=== PATIENT | male | born 1950 | race Caucasian/White ===

== ENCOUNTER 2016-09-06 15:23 | Emergency (ER) | payer OTHER ==
[2008-10-28 06:45] VITALS: BP 117/60
[~2016-09-06] VITALS: Ht 185.4 cm; Wt 116.4 kg
[~2016-09-06 15:23] MED LIST: ACTOS30 MG PO; AMITRIPTYLINE H25 M1 PO; AMITRIPTYLINE25 MG PO; AMOXICILLIN 8751 TAB PO; ANTIBIOTIC PO; ASPIRIN 32325 MG/TAB PO; ASPIRIN E.C. 8181 MG PO; CEPHALEXIN500 M1 PO; CIPRO 250MG TA250 MG PO; CIPRO 500MG TA500 MG PO; COLACE100 MG/10 PO; CYANOCOBAL1000 MCG/M IM; DESYREL 50MG50 MG PO; DETEMIR SQ; DIABETA 5MG5 MG/TAB PO; DICLOXACILLIN500 MG PO; EFFIENT10 MG PO; FERREX 150 FORT1 CA1 PO; FLOMAX 0.40.4 MG/CAP PO; FOLIC ACID 11 MG/TA1 PO; FOLIC ACID0.4 MG PO; FORTAMET500 MG PO; GLUCOPHAGE1000 MG PO; GLUCOSAMINE 1000 PO; GLUCOSAMINE500 M2 PO; IBU400 MG PO; IBUPROFEN IB200 MG PO; INSULIN 70/3100 U/ML SQ; KLOR-CON20 MEQ PO; LASIX40 MG PO; LEADER GARLIC400 MG PO; LEVAQUIN 250MG250 MG PO; LEVEMIR SQ; LEVEMIR100 U/ML; LEVEMIR100 U/ML SC; LEVEMIR100 U/ML SQ; LISINOPRIL2.5 MG PO; LOPRESSOR 225 MG/TAB PO; LOPRESSOR 550 MG/TAB PO; LORTAB 5/500 501 TAB PO; LYRICA 50MG CAP50 MG PO; LYRICA 75MG CAP75 MG PO; MASON NATURAL500 MG PO; METFORMIN HCL500 MG PO; METOCLOPRAMIDE10 MG PO; METOPROLOL PO; METOPROLOL50 MG PO; MOTRIN800 MG PO; NITROSTAT0.4 MG/TAB SL; NORCO 325 MG-51 TAB PO; NORCO 325 MG-7.1 TAB PO; NOVOLOG 100U100 U/ML SQ; NOVOLOG FLEX100 U/ML SQ; ONGLYZA5 MG PO; PANTOPRAZOLE40 MG PO; PERCOCET 325 MG1 TA2 PO; PLAVIX 75MG TAB75 MG PO; PROSCAR5 MG PO; RANITIDINE HYD150 MG PO; RANITIDINE150 MG PO; REGLAN 10MG10 MG/TAB PO; REGLAN 5MG T5 MG/TAB PO; RYBIX ODT50 MG PO; SENNA8.6 MG PO; SEPTRA DS 8001 TAB PO; SIMVASTATIN20 MG PO; ULTRAM ER100 MG PO; VENTOLIN0.09 MG IH; VICODIN 5/5001 UDTAB PO; VITAMIN B COMPL1 SGL PO; WELLBUTRIN SR150 M1 PO; ZANTAC 150MG T150 MG PO; ZANTAC 7575 MG PO; ZOCOR 10MG10 MG PO; ZOCOR 20MG20 MG PO; ZOCOR40 MG PO
[2016-09-06 15:25] VITALS: TEMP 98.7
[2016-09-06 16:25] LABS: BASO % 0.3 % (0.0-2.0); EOS # 0.2 (0.0-0.7); EOS % 2.6 % (0-4.0); GRAN # 6.6 (1.4-6.5); GRAN % 72.5 % (42.2-75.2); HEMOGLOBIN 12.1 g/dl (13.5-18.0); LYMPH # 1.3 (1.2-3.4); LYMPH % 14.6 % (20.0-51.0); MEAN CELL VOLUME 91 fl (80.0-100.0); MEAN CORPUSCULAR HEMOGLOBIN 30 pg (27.0-31.0); MEAN CORPUSCULAR HGB CONC 33 g/dl (33.0-37.0); MEAN PLATELET VOLUME 9.6 fl (7.4-10.4); MONO # 0.9 (0.1-0.6); MONO % 9.4 % (1.7-9.3); PLATELET COUNT 283 K/mm3 (130-400); RED BLOOD COUNT 4.02 M/mm3 (4.20-5.60); REDCELL DISTRIBUTION WIDTH-CV 14.2 % (11.5-14.5); WHITE BLOOD COUNT 9.1 K/mm3 (4.8-10.8)
[2016-09-06 16:31] LABS: HEMATOCRIT 36.6 % (42.0-52.0)
[2016-09-06 16:43] LABS: ADJUSTED CALCIUM 9.6 mg/dL (8.4-10.2); ALBUMIN 4.1 gm/dL (3.5-5.0); BILIRUBIN,TOTAL 0.7 mg/dL (0.0-1.0); C-REACTIVE PROTEIN 1.4 mg/dL (0.0-0.9); CALCIUM 9.7 mg/dL (8.4-10.2); CREATININE, serum 1.58 mg/dL (0.66-1.25); POTASSIUM 4.8 mmol/L (3.4-5.0); TOTAL PROTEIN 7.4 gm/dL (6.4-8.2)
[2016-09-06] MEDS ORDERED: AMOXICILLIN 8751 TAB PO (17:54)
[2016-09-06 18:07] VITALS: BP 128/85; PULSE 63
== END 2016-09-06 18:10 | disposition home or self-care (01) ==
LOC: COL.ER 15:23
PROVIDERS: Family Medicine
DX: L03.032 Cellulitis of left toe (principal); E11.9 Type 2 diabetes mellitus without complications

== ENCOUNTER 2017-10-10 09:25 | Inpatient (IN) | payer MEDICARE ==
[~2017-10-10] VITALS: Ht 185.4 cm; Wt 123.4 kg
[2017-10-10 12:19] VITALS: BP 148/62; PULSE 48; TEMP 97.8
[2017-10-10] MEDS ORDERED: REQUIP0.25 MG PO (12:53)
[2017-10-10 12:56] LABS: BASO % 0.2 % (0.0-2.0); EOS # 0.3 (0.0-0.7); EOS % 3.7 % (0-4.0); GRAN % 70.8 % (42.2-75.2); LYMPH # 1.4 (1.2-3.4); LYMPH % 16.8 % (20.0-51.0); MEAN CELL VOLUME 92 fl (80.0-100.0); MEAN CORPUSCULAR HGB CONC 34 g/dl (33.0-37.0); MEAN PLATELET VOLUME 9.9 fl (7.4-10.4); MONO # 0.7 (0.1-0.6); MONO % 7.7 % (1.7-9.3); PLATELET COUNT 264 K/mm3 (130-400); RED BLOOD COUNT 3.28 M/mm3 (4.20-5.60); REDCELL DISTRIBUTION WIDTH-CV 13.9 % (11.5-14.5)
[2017-10-10] MEDS ORDERED: SINGULAIR 110 MG/TAB PO (12:56)
[2017-10-10 12:57] LABS: HEMATOCRIT 30.3 % (42.0-52.0); HEMOGLOBIN 10.2 g/dl (13.5-18.0); MEAN CORPUSCULAR HEMOGLOBIN 31 pg (27.0-31.0)
[2017-10-10 13:08] LABS: ALBUMIN 3.8 gm/dL (3.5-5.0); BILIRUBIN,TOTAL 0.3 mg/dL (0.0-1.0); CALCIUM 9.6 mg/dL (8.4-10.2); POTASSIUM 5.2 mmol/L (3.4-5.0); TOTAL PROTEIN 7.1 gm/dL (6.4-8.2)
[2017-10-10 13:11] LABS: CREATININE, serum 4.12 mg/dL (0.66-1.25)
[2017-10-10] MEDS ORDERED: FLOMAX 0.40.4 MG/CAP PO (16:18)
[2017-10-10 16:31] VITALS: BP 136/62; PULSE 47; TEMP 98.4
[2017-10-10 17:34] LABS: COLLECTION METHOD CLEAN CATCH
[2017-10-10 17:44] LABS: PH 6 (5-8); SQUAMOUS EPITHELIAL None Seen /hpf; URINE APPEARANCE Clear; URINE BACTERIA None Seen /hpf; URINE BILIRUBIN Negative (NEGATIVE); URINE BLOOD 3+ (NEGATIVE); URINE COLOR Red; URINE GLUCOSE Negative (NEGATIVE); URINE KETONE Negative (NEGATIVE); URINE LEUKOCYTE ESTERASE Negative (NEGATIVE); URINE NITRATE Negative (NEGATIVE); URINE PROTEIN(semi-quant) 2+ (NEGATIVE); URINE RBC >50 /hpf; URINE UROBILINOGEN Negative (NEGATIVE)
[2017-10-10 19:18] LABS: CALCIUM 9.4 mg/dL (8.4-10.2); POTASSIUM 4.9 mmol/L (3.4-5.0)
[2017-10-10 19:22] VITALS: BP 159/59; PULSE 51; TEMP 98
[2017-10-10 19:22] LABS: CREATININE, serum 3.95 mg/dL (0.66-1.25)
[2017-10-10 23:32] VITALS: BP 137/60; PULSE 55; TEMP 97.8
[2017-10-11 03:36] VITALS: BP 137/53; PULSE 56; TEMP 98.1
[2017-10-11 07:00] LABS: BASO % 0.2 % (0.0-2.0); EOS # 0.2 (0.0-0.7); EOS % 2.6 % (0-4.0); GRAN % 75.6 % (42.2-75.2); LYMPH # 1.2 (1.2-3.4); LYMPH % 12.5 % (20.0-51.0); MEAN CELL VOLUME 94 fl (80.0-100.0); MEAN CORPUSCULAR HGB CONC 33 g/dl (33.0-37.0); MEAN PLATELET VOLUME 10.9 fl (7.4-10.4); MONO # 0.8 (0.1-0.6); MONO % 8.4 % (1.7-9.3); PLATELET COUNT 302 K/mm3 (130-400); RED BLOOD COUNT 3.36 M/mm3 (4.20-5.60); REDCELL DISTRIBUTION WIDTH-CV 13.8 % (11.5-14.5)
[2017-10-11 07:01] LABS: CALCIUM 9.2 mg/dL (8.4-10.2); POTASSIUM 4.8 mmol/L (3.4-5.0)
[2017-10-11 07:09] LABS: CREATININE, serum 3.97 mg/dL (0.66-1.25)
[2017-10-11 07:14] LABS: HEMATOCRIT 31.5 % (42.0-52.0); HEMOGLOBIN 10.4 g/dl (13.5-18.0); MEAN CORPUSCULAR HEMOGLOBIN 31 pg (27.0-31.0)
[2017-10-11 07:40] VITALS: BP 145/58; PULSE 56; TEMP 98.4
[2017-10-11 11:54] VITALS: BP 126/54; PULSE 65; TEMP 98.5
[2017-10-11 16:26] VITALS: BP 112/44; PULSE 52; TEMP 98.2
[2017-10-11 18:15] LABS: CALCIUM 9.1 mg/dL (8.4-10.2); CREATININE, serum 3.67 mg/dL (0.66-1.25); POTASSIUM 4.7 mmol/L (3.4-5.0)
[2017-10-11 20:04] VITALS: BP 123/50; PULSE 54; TEMP 98.6
[2017-10-11 23:35] VITALS: BP 121/48; PULSE 56; TEMP 97.6
[2017-10-12 04:10] VITALS: BP 137/51; PULSE 63; TEMP 98.1
[2017-10-12 07:14] LABS: BASO % 0.2 % (0.0-2.0); EOS # 0.3 (0.0-0.7); EOS % 2.4 % (0-4.0); GRAN # 8.8 (1.4-6.5); LYMPH # 1.1 (1.2-3.4); LYMPH % 10.3 % (20.0-51.0); MEAN CELL VOLUME 94 fl (80.0-100.0); MEAN CORPUSCULAR HGB CONC 33 g/dl (33.0-37.0); MEAN PLATELET VOLUME 10.5 fl (7.4-10.4); MONO # 0.8 (0.1-0.6); MONO % 7.3 % (1.7-9.3); PLATELET COUNT 304 K/mm3 (130-400); REDCELL DISTRIBUTION WIDTH-CV 13.8 % (11.5-14.5)
[2017-10-12 07:20] LABS: HEMATOCRIT 33.9 % (42.0-52.0); HEMOGLOBIN 11.1 g/dl (13.5-18.0); MEAN CORPUSCULAR HEMOGLOBIN 31 pg (27.0-31.0)
[2017-10-12 07:23] LABS: CALCIUM 9.3 mg/dL (8.4-10.2); CREATININE, serum 3.62 mg/dL (0.66-1.25); POTASSIUM 4.5 mmol/L (3.4-5.0)
[2017-10-12 08:03] VITALS: BP 117/46; PULSE 65; TEMP 98.4
[2017-10-12 11:54] VITALS: BP 130/66; PULSE 58; TEMP 98
== END 2017-10-12 14:32 | disposition home or self-care (01) | DRG 684 ==
LOC: COL.RAD 09:25 → MEDICAL 11:48
PROVIDERS: Internal Medicine; Physician Assistant; Urology
PROC: 0TJB8ZZ Inspection of Bladder, Via Natural or Artificial Opening Endoscopic (ICD-10-PCS; principal; 2017-10-11 12:45)
DX: N17.9 Acute kidney failure, unspecified (principal); N40.1 Benign prostatic hyperplasia with lower urinary tract symptoms; R33.8 Other retention of urine; I87.2 Venous insufficiency (chronic) (peripheral); G25.81 Restless legs syndrome; E11.40 Type 2 diabetes mellitus with diabetic neuropathy, unspecified; E87.5 Hyperkalemia; D64.9 Anemia, unspecified; I12.9 Hypertensive chronic kidney disease with stage 1 through stage 4 chronic kidney disease, or unspecified chronic kidney disease; N18.3 Chronic kidney disease, stage 3 (moderate); E11.22 Type 2 diabetes mellitus with diabetic chronic kidney disease; N13.39 Other hydronephrosis; Z95.1 Presence of aortocoronary bypass graft; Z79.4 Long term (current) use of insulin
CPT/HCPCS: 99223-AI; 99232-AI; 99239; G0378; J1644; J1815

== ENCOUNTER 2017-10-12 21:09 | Emergency (ER) | payer MEDICARE ==
[2008-10-28 06:45] VITALS: BP 117/60
[~2017-10-12] VITALS: Ht 185.4 cm; Wt 109.5 kg
[~2017-10-12 21:09] MED LIST changes: +REQUIP0.25 MG PO; +SINGULAIR 110 MG/TAB PO
[2017-10-12 21:13] VITALS: BP 142/64; TEMP 98.3
[2017-10-12 22:16] VITALS: PULSE 73
== END 2017-10-12 22:17 | disposition home or self-care (01) ==
LOC: COL.ER 21:09
DX: R31.9 Hematuria, unspecified (principal); R33.9 Retention of urine, unspecified; N40.0 Benign prostatic hyperplasia without lower urinary tract symptoms; N18.9 Chronic kidney disease, unspecified; E11.22 Type 2 diabetes mellitus with diabetic chronic kidney disease; Z79.4 Long term (current) use of insulin

== ENCOUNTER 2017-10-18 11:50 | Observation (INO) | payer MEDICARE ==
[2008-10-28 06:45] VITALS: BP 117/60
[~2017-10-18] VITALS: Ht 185.4 cm; Wt 109.0 kg
[2017-10-18] VITALS (10 sets, daily range): BP systolic 115–139; BP diastolic 48–58; PULSE 48–65; TEMP 97.4–98.3
[~2017-10-18 11:50] MED LIST changes: -METOPROLOL PO; +TOPROL XL 25MG25 MG PO
[2017-10-19 02:00] VITALS: BP 109/59; PULSE 78; TEMP 97.8
[2017-10-19 04:57] VITALS: BP 124/55; PULSE 77; TEMP 98.6
[2017-10-19 09:32] VITALS: BP 114/46; PULSE 75; TEMP 98
[2017-10-19 13:12] VITALS: BP 107/45; PULSE 61; TEMP 97.8
[2017-10-19 17:42] VITALS: BP 126/55; PULSE 58; TEMP 98.8
[2017-10-19 22:02] VITALS: BP 123/47; PULSE 69; TEMP 98.1
[2017-10-20 01:44] VITALS: BP 130/58; PULSE 60; TEMP 98.4
[2017-10-20 05:29] VITALS: BP 110/55; PULSE 62; TEMP 98.4
[2017-10-20 09:40] VITALS: BP 111/56; PULSE 57; TEMP 98.6
[2017-10-20 13:59] VITALS: BP 132/43; PULSE 64; TEMP 98.3
== END 2017-10-20 15:09 | disposition home or self-care (01) ==
LOC: SDCO 11:50 → SURG 14:27 → SDCO 14:30 → SURG 17:00
DX: N40.1 Benign prostatic hyperplasia with lower urinary tract symptoms (principal); R33.8 Other retention of urine; N13.30 Unspecified hydronephrosis; I25.10 Atherosclerotic heart disease of native coronary artery without angina pectoris; K21.9 Gastro-esophageal reflux disease without esophagitis; E78.5 Hyperlipidemia, unspecified; F32.9 Major depressive disorder, single episode, unspecified; E11.40 Type 2 diabetes mellitus with diabetic neuropathy, unspecified; E11.22 Type 2 diabetes mellitus with diabetic chronic kidney disease; N18.9 Chronic kidney disease, unspecified; E66.9 Obesity, unspecified; G47.00 Insomnia, unspecified; D64.9 Anemia, unspecified; E53.8 Deficiency of other specified B group vitamins; Z95.1 Presence of aortocoronary bypass graft; Z79.4 Long term (current) use of insulin; Z79.82 Long term (current) use of aspirin; Z87.891 Personal history of nicotine dependence
CPT/HCPCS: G0378; J0690; J1100; J1815; J2250; J2405; J2704; J3010; J7030

== ENCOUNTER 2017-11-16 23:42 | Emergency (ER) | payer MEDICARE ==
[2008-10-28 06:45] VITALS: BP 117/60
[~2017-11-16] VITALS: Ht 185.4 cm; Wt 111.8 kg
[2017-11-16 23:53] VITALS: TEMP 99
[2017-11-17 00:18] LABS: COLLECTION METHOD CLEAN CATCH
[2017-11-17 00:32] LABS: PH 6 (5-8); SQUAMOUS EPITHELIAL None Seen /hpf; URINE APPEARANCE Cloudy; URINE BACTERIA None Seen /hpf; URINE BILIRUBIN Negative (NEGATIVE); URINE BLOOD 2+ (NEGATIVE); URINE COLOR Red; URINE GLUCOSE 1+ (NEGATIVE); URINE KETONE Negative (NEGATIVE); URINE LEUKOCYTE ESTERASE 1+ (NEGATIVE); URINE NITRATE Negative (NEGATIVE); URINE PROTEIN(semi-quant) 2+ (NEGATIVE); URINE RBC >50 /hpf; URINE UROBILINOGEN Negative (NEGATIVE)
[2017-11-17 00:39] LABS: BASO % 0.4 % (0.0-2.0); EOS # 0.5 (0.0-0.7); GRAN # 6.3 (1.4-6.5); GRAN % 66.5 % (42.2-75.2); LYMPH # 1.7 (1.2-3.4); LYMPH % 18.2 % (20.0-51.0); MEAN CELL VOLUME 92 fl (80.0-100.0); MEAN CORPUSCULAR HEMOGLOBIN 31 pg (27.0-31.0); MEAN CORPUSCULAR HGB CONC 33 g/dl (33.0-37.0); MEAN PLATELET VOLUME 9.9 fl (7.4-10.4); MONO # 0.8 (0.1-0.6); MONO % 8.3 % (1.7-9.3); PLATELET COUNT 367 K/mm3 (130-400); RED BLOOD COUNT 3.26 M/mm3 (4.20-5.60); REDCELL DISTRIBUTION WIDTH-CV 14.1 % (11.5-14.5)
[2017-11-17 00:44] LABS: ALBUMIN 3.7 gm/dL (3.5-5.0); BILIRUBIN,TOTAL 0.4 mg/dL (0.0-1.0); CALCIUM 9.4 mg/dL (8.4-10.2); CREATININE, serum 2.06 mg/dL (0.66-1.25); POTASSIUM 4.6 mmol/L (3.4-5.0); TOTAL PROTEIN 7.2 gm/dL (6.4-8.2)
[2017-11-17] MEDS ORDERED: CIPRO 500MG TA500 MG PO (01:24)
[2017-11-17 01:46] VITALS: BP 115/54; PULSE 56
== END 2017-11-17 01:46 | disposition home or self-care (01) ==
LOC: COL.ER 23:42
PROVIDERS: Nurse Practitioner
DX: N39.0 Urinary tract infection, site not specified (principal); E11.9 Type 2 diabetes mellitus without complications; Z79.4 Long term (current) use of insulin; Z90.89 Acquired absence of other organs; Z79.82 Long term (current) use of aspirin; Z87.891 Personal history of nicotine dependence; Z95.1 Presence of aortocoronary bypass graft

== ENCOUNTER → 2018-02-23 | Outpatient (CLI) | payer MEDICARE ==
[2018-02-23 12:03] LABS: CALCIUM 8.5 mg/dL (8.4-10.2); CREATININE, serum 1.38 mg/dL (0.66-1.25); POTASSIUM 4.4 mmol/L (3.4-5.0)
[2018-02-24 00:24] LABS: URINE MICROALBUMIN 3.6 mg/dL (0.0-1.7)
== END ==
LOC: COL.LAB 10:26
PROVIDERS: Internal Medicine
DX: I12.9 Hypertensive chronic kidney disease with stage 1 through stage 4 chronic kidney disease, or unspecified chronic kidney disease (principal); N18.3 Chronic kidney disease, stage 3 (moderate); E66.8 Other obesity

== ENCOUNTER 2019-10-30 13:57 | Inpatient (IN) | payer MEDICARE ==
[~2019-10-30] VITALS: Ht 185.4 cm; Wt 106.8 kg
[2019-10-30 15:00] LABS: BASO % 0.2 % (0.0-2.0); EOS # 0.2 (0.0-0.7); GRAN # 12.9 (1.4-6.5); GRAN % 84.2 % (42.2-75.2); HEMOGLOBIN 11.5 g/dl (13.5-18.0); LYMPH # 0.9 (1.2-3.4); LYMPH % 5.9 % (20.0-51.0); MEAN CELL VOLUME 104 fl (80.0-100.0); MEAN CORPUSCULAR HEMOGLOBIN 34 pg (27.0-31.0); MEAN CORPUSCULAR HGB CONC 32 g/dl (33.0-37.0); MEAN PLATELET VOLUME 10.3 fl (7.4-10.4); MONO # 1.2 (0.1-0.6); MONO % 8.1 % (1.7-9.3); PLATELET COUNT 465 K/mm3 (130-400); REDCELL DISTRIBUTION WIDTH-CV 17.2 % (11.5-14.5)
[2019-10-30 15:03] LABS: HEMATOCRIT 35.5 % (42.0-52.0)
[2019-10-30] MEDS ORDERED: LEVEMIR100 U/ML SQ (15:08)
[2019-10-30] MEDS ORDERED: REQUIP0.25 MG PO (15:10)
[2019-10-30 15:11] LABS: ALBUMIN 4.1 gm/dL (3.5-5.0); BILIRUBIN,TOTAL 0.5 mg/dL (0.0-1.0); C-REACTIVE PROTEIN 3.8 mg/dL (0.0-0.9); CALCIUM 9.2 mg/dL (8.4-10.2); CREATININE, serum 1.69 (0.66-1.25); POTASSIUM 5.2 mmol/L (3.4-5.0); TOTAL PROTEIN 7.1 gm/dL (6.4-8.2)
[2019-10-30 15:24] LABS: ERYTHROCYTE SEDIMENTATION RATE 19 mm/hr (0-30)
[2019-10-30 15:49] LABS: PROTHROMBIN TIME 11.5 SECONDS (9.7-12.8)
[2019-10-30 15:52] LABS: PARTIAL THROMBOPLASTIN TIME 31.4 SECONDS (26.0-37.0)
[2019-10-30] MEDS ORDERED: PEPCID AC 10MG10 MG PO (15:54)
[2019-10-30] MEDS ORDERED: ZYRTEC 10MG10 MG PO (15:55)
[2019-10-30] MEDS ORDERED: TOPROL XL 25MG25 MG PO (15:56)
[2019-10-30] MEDS ORDERED: ASPIRIN 32325 MG/TA1 PO (15:57)
[2019-10-30] MEDS ORDERED: HYDROXYURE500 MG/CAP PO (15:58)
[2019-10-30] MEDS ORDERED: NATURAL MAGNES200 MG PO (15:59)
--- NOTE | 2019-10-30 18:40 | NUR ---
Pt up to room 349, sitting in recliner at bedside. Pt is A&O, independent in room, on room air, breathing even and unlabored. Med rec, allergies and pharmacy completed. Pt has ulcer to ball of rt foot. Ortho consulted and saw patient, rt foot ulcer, not draining at this time, covered w/ nonadhesive and wrapped. Report given to DEBO Bella.
[2019-10-30 18:55] VITALS: BP 126/47; PULSE 56; TEMP 98.1
[2019-10-30 20:13] VITALS: BP 126/47; PULSE 56; TEMP 98.6
[2019-10-31 00:24] VITALS: BP 124/54; PULSE 57; TEMP 98.2
[2019-10-31 04:12] VITALS: BP 132/48; PULSE 60; TEMP 99.4
--- NOTE | 2019-10-31 05:37 | NUR ---
PATIENT HAS HAD A RESTFUL NIGHT SLEEP. PATIENT SLEEPS IN THE RECLINER OR AT LEAST THAT IS WHERE HE WANTED TO SLEEP THIS EVENING. PATIENT HAS NOT REPORTED ANY ISSUES TO THIS NURSE. HIS FOOT REMAINS RAPPED IN [facility]. PATIENT WAS ABLE TO TELL ME ALL THE INFORMATION NEEDED FOR HIS 5 PAGE ASSESSMENT. PATIENT TOOK EVENING MEDICATIONS WITHOUT ISSUES. WILL REPORT OFF TO DAY SHIFT UPON THEIR ARRIVAL
[2019-10-31 06:12] LABS: BASO % 0.2 % (0.0-2.0); EOS # 0.2 (0.0-0.7); EOS % 1.4 % (0-4.0); GRAN # 9.2 (1.4-6.5); HEMOGLOBIN 10.8 g/dl (13.5-18.0); LYMPH # 0.7 (1.2-3.4); MEAN CELL VOLUME 104 fl (80.0-100.0); MEAN CORPUSCULAR HEMOGLOBIN 34 pg (27.0-31.0); MEAN CORPUSCULAR HGB CONC 32 g/dl (33.0-37.0); MEAN PLATELET VOLUME 9.8 fl (7.4-10.4); PLATELET COUNT 400 K/mm3 (130-400); RED BLOOD COUNT 3.21 M/mm3 (4.20-5.60); REDCELL DISTRIBUTION WIDTH-CV 17.2 % (11.5-14.5)
[2019-10-31 06:16] LABS: HEMATOCRIT 33.5 % (42.0-52.0)
[2019-10-31 06:20] LABS: ALBUMIN 3.6 gm/dL (3.5-5.0); BILIRUBIN,TOTAL 0.6 mg/dL (0.0-1.0); CALCIUM 8.7 mg/dL (8.4-10.2); CREATININE, serum 1.48 (0.66-1.25); POTASSIUM 4.3 mmol/L (3.4-5.0); TOTAL PROTEIN 6.5 gm/dL (6.4-8.2)
--- NOTE | 2019-10-31 06:40 | NUR ---
Vancomycin Initial Dosing Pharmacy Note Ordering provider: Herb Le MD Indication/duration: DM foot ulcer, empiric coverage LABS: eCrCl ~ 60 mL/min Recommendation: Loading doses: 1.5g given 10/30/19 @ 15:45 followed by 2g given at 22:20. Maintenance dose: 750 mg every 12 hours starting 10/31/19 @ 10:00. Trough goal: 10-15 ug/mL with first trough level to be drawn 11/02/19 @ 09:30. Will continue to follow.
[2019-10-31 07:54] VITALS: BP 117/38; PULSE 66; TEMP 98.2
--- NOTE | 2019-10-31 10:11 | NUR ---
Pt assessment completed and charted. medications administered per AUG. Pt sitting in recliner at bedside. Pt A&O, independent in room, on room air, breathing is even and unlabored. Pt denies pain to RLE, redness noted to Rt valdivia. Edema present to both lower extremities. Diabetic ulcer to ball of rt foot, minimal drainage noted over night, dressing removed for hospitalist to assess. Pt to have MRI this morning. Pt provided w/ briefs, episodes of incontinence over night reported. RAC IV w/ NS and Vanc running w/o complications. No further needs at this time.
--- NOTE | 2019-10-31 12:05 | NUR ---
First visit from the industrial relations representative. No needs right now.
[2019-10-31 12:14] VITALS: BP 135/50; PULSE 57; TEMP 98.8
--- NOTE | 2019-10-31 12:22 | NUR ---
ASIF met with the patient to complete initial intake. The patient lives in [place] with his , Marlys. The patient denies DME use and is independent with ADLs. The patient's PCP is Laurel Chang APRN. The patient receives medications from [facility] in [place] or [facility] in [place]. The patient has advanced directives in the EMR. The patient plans to return home at discharge with his providing transportation. There are no additional needs at this time.
[2019-10-31 15:57] VITALS: BP 136/43; PULSE 54; TEMP 98.5
--- NOTE | 2019-10-31 17:19 | NUR ---
Pt had MRI this afternoon, room rearranged per pt request. Rt foot ulcer w/ new dressing. No further needs at this time.
[2019-10-31 19:09] VITALS: BP 145/44; PULSE 60; TEMP 98.4
--- NOTE | 2019-10-31 20:30 | NUR ---
Pt. sitting up in chair at this time. Pt. is A&OX3, assessment complete. IV to rt. AC patent, IV fluids infusing per orders. Pt. denies pain. Dressing to rt. foot CDI. Pt. denies further needs, call light within reach.
[2019-11-01] VITALS (7 sets, daily range): BP systolic 115–139; BP diastolic 40–94; PULSE 53–82; TEMP 98.7–100.9
[2019-11-01 06:04] LABS: BASO % 0.2 % (0.0-2.0); EOS # 0.2 (0.0-0.7); EOS % 1.7 % (0-4.0); GRAN # 9.1 (1.4-6.5); GRAN % 81.6 % (42.2-75.2); HEMOGLOBIN 10.7 g/dl (13.5-18.0); LYMPH # 0.8 (1.2-3.4); LYMPH % 7.2 % (20.0-51.0); MEAN CELL VOLUME 106 fl (80.0-100.0); MEAN CORPUSCULAR HEMOGLOBIN 35 pg (27.0-31.0); MEAN CORPUSCULAR HGB CONC 33 g/dl (33.0-37.0); MEAN PLATELET VOLUME 10.1 fl (7.4-10.4); MONO % 8.9 % (1.7-9.3); PLATELET COUNT 426 K/mm3 (130-400); REDCELL DISTRIBUTION WIDTH-CV 17.1 % (11.5-14.5)
[2019-11-01 06:10] LABS: HEMATOCRIT 32.8 % (42.0-52.0)
[2019-11-01 06:19] LABS: ALBUMIN 3.6 gm/dL (3.5-5.0); BILIRUBIN,TOTAL 0.3 mg/dL (0.0-1.0); CALCIUM 8.8 mg/dL (8.4-10.2); CREATININE, serum 1.48 (0.66-1.25); POTASSIUM 4.2 mmol/L (3.4-5.0); TOTAL PROTEIN 6.7 gm/dL (6.4-8.2)
--- NOTE | 2019-11-01 09:04 | NUR ---
PATIENT RESTING IN BED THIS MORNING. PATIENT IS DROWSY BUT A&OX4. VSS. TEMP IS 99.5 THIS MORNING. PATIENT GIVEN PRN PO TYLENOL. BOWEL SOUNDS ACTIVE ALL FOUR QUADRANTS. PATIENT STATES THAT HE HAS A PRODUCTIVE COUGH THAT WAS UNOBSERVED BY THIS NURSE. PATIENT STATES THAT IT IS PICHARDO IN COLOR. POSITIVE PEDAL PULSES EQUAL BILATERALLY. CAP REFILL <3 SECONDS. CMS INTACT. ERYTHEMA TO RLE THAT IS WARM TO THE TOUCH AND PATIENT STATES THAT IT IS PAINFUL WHEN PALPATED. 2+ PITTING-EDEMA TO RIGHT FOOT. RIGHT FOOT DRESSED WITH GAUZE AND TAPE WITH SCANT AMOUNT OF SHADING PRESENT. 1+ PITTING-EDEMA TO BLE. IV FLUIDS INFUSING TO RIGHT AC IV VIA PUMP. CALL LIGHT WITHIN REACH. PATIENT DENIES ANY OTHER NEEDS AT THIS TIME.
--- NOTE | 2019-11-01 17:20 | NUR ---
PATIENT TEMPURATURE THIS AFTERNOON IS 99.0. PATIENT GIVEN PRN PO TYLENOL 650 MG. WILL CONTINUE TO MONITOR. PATIENT DENIES ANY OTHER NEEDS AT THIS TIME.
--- NOTE | 2019-11-01 19:12 | NUR ---
REPORT GIVEN TO DEBO MALDONADO.
[2019-11-02 03:27] VITALS: BP 123/41; PULSE 69; TEMP 99.4
--- NOTE | 2019-11-02 05:34 | NUR ---
Patient has rested well throughout the night. Dressing to right foot clean, dry, and intact. IV antibiotics infusing per orders. Patient denies pain. Independent with ambulation to the bathroom. New IV started in left forearm d/t old IV leaking. Denies any further needs. Will continue to monitor.
[2019-11-02 06:28] LABS: BASO % 0.2 % (0.0-2.0); EOS # 0.2 (0.0-0.7); EOS % 1.4 % (0-4.0); GRAN # 11.3 (1.4-6.5); GRAN % 81.8 % (42.2-75.2); HEMOGLOBIN 10.8 g/dl (13.5-18.0); LYMPH # 0.9 (1.2-3.4); LYMPH % 6.6 % (20.0-51.0); MEAN CELL VOLUME 106 fl (80.0-100.0); MEAN CORPUSCULAR HEMOGLOBIN 34 pg (27.0-31.0); MEAN CORPUSCULAR HGB CONC 32 g/dl (33.0-37.0); MEAN PLATELET VOLUME 10.1 fl (7.4-10.4); MONO # 1.2 (0.1-0.6); MONO % 8.9 % (1.7-9.3); PLATELET COUNT 452 K/mm3 (130-400); RED BLOOD COUNT 3.18 M/mm3 (4.20-5.60); REDCELL DISTRIBUTION WIDTH-CV 16.7 % (11.5-14.5)
[2019-11-02 06:31] LABS: HEMATOCRIT 33.6 % (42.0-52.0)
[2019-11-02 06:47] LABS: ALBUMIN 3.7 gm/dL (3.5-5.0); BILIRUBIN,TOTAL 0.4 mg/dL (0.0-1.0); CREATININE, serum 1.39 (0.66-1.25); POTASSIUM 3.8 mmol/L (3.4-5.0); TOTAL PROTEIN 6.9 gm/dL (6.4-8.2)
[2019-11-02 08:25] VITALS: BP 122/40; PULSE 88; TEMP 98.8
--- NOTE | 2019-11-02 08:37 | NUR ---
Assessment complete. Patient sitting up in the recliner. A&Ox4, denies pain and discomfort. VSS. IV CDI, fluids infusing. Right foot yellow drainage on dressing. Nurse will change after doctors round. No further needs expressed from patient. Call light within reach.
[2019-11-02 11:39] VITALS: BP 112/38; PULSE 51; TEMP 98.6
[2019-11-02 15:51] VITALS: BP 111/41; PULSE 55; TEMP 98.7
--- NOTE | 2019-11-02 17:49 | NUR ---
Patient sitting up in the recliner eating dinner. A&O, VSS. IV CDI, fluids infusing. Denies pain and discomfort. Has been independent in the room. No further needs expressed from patient. Call light within reach
[2019-11-02 19:35] VITALS: BP 123/43; PULSE 58; TEMP 98.2
--- NOTE | 2019-11-02 20:00 | NUR ---
Report received. Assumed care for shift lab technician. A&Ox3. Sitting up in chair talking with family on phone. Assessment complete. VS stable. Plan of care discussed for this shift to include HS meds/pain control/antibiotics. Denies pain/nausea/shortness of breath. Right foot with gauze dressing to toe area-CDI. Noted to have swelling/redness to that area. Elevated on pillow. States he would like to sleep in the recliner tonight as it is more comfortable. Denies any other questions/concerns. Call light in reach. Will monitor.
[2019-11-02 23:47] VITALS: BP 120/38; PULSE 56; TEMP 98.6
[2019-11-03 03:31] VITALS: BP 130/40; PULSE 59; TEMP 98.3
--- NOTE | 2019-11-03 06:30 | NUR ---
SECURITY PROJECT MANAGER reports bedside glucose of 57. Hypoglycemic protocol per dr order. Given OJ and crackers/peanut butter. Will recheck in 15 minutes.
--- NOTE | 2019-11-03 06:50 | NUR ---
Bedside glucose checked-61. Cameron juice continued with crackers/peanut butter. Report given to DEBO Brewer for next timed blood sugar.
[2019-11-03 07:23] VITALS: BP 108/49; PULSE 62; TEMP 98.5
[2019-11-03 07:25] LABS: BASO % 0.2 % (0.0-2.0); EOS # 0.2 (0.0-0.7); EOS % 2.5 % (0-4.0); GRAN # 6.3 (1.4-6.5); GRAN % 75.1 % (42.2-75.2); HEMOGLOBIN 10.4 g/dl (13.5-18.0); LYMPH # 1.1 (1.2-3.4); LYMPH % 13.4 % (20.0-51.0); MEAN CELL VOLUME 106 fl (80.0-100.0); MEAN CORPUSCULAR HEMOGLOBIN 34 pg (27.0-31.0); MEAN CORPUSCULAR HGB CONC 32 g/dl (33.0-37.0); MEAN PLATELET VOLUME 9.9 fl (7.4-10.4); MONO # 0.7 (0.1-0.6); MONO % 8.3 % (1.7-9.3); PLATELET COUNT 458 K/mm3 (130-400); RED BLOOD COUNT 3.04 M/mm3 (4.20-5.60); REDCELL DISTRIBUTION WIDTH-CV 16.6 % (11.5-14.5)
[2019-11-03 07:29] LABS: HEMATOCRIT 32.1 % (42.0-52.0)
[2019-11-03 07:35] LABS: CALCIUM 9.3 mg/dL (8.4-10.2); CREATININE, serum 1.49 (0.66-1.25); POTASSIUM 3.9 mmol/L (3.4-5.0)
--- NOTE | 2019-11-03 08:00 | NUR ---
PATIENT IS SITTING UP IN THE BEDSIDE CHAIR UPON ENTRY TO THE ROOM. PATIENT IS A&OX4. VSS. BOWEL SOUNDS ACTIVE ALL FOUR QUADRANTS. PATIENT TOLERATING DIET WITHOUT COMPLAINTS OF N/V. POSITIVE PEDAL PULSES EQUAL BILATERALLY. 2+ PITTING-EDEMA TO FEET BILATERALLY. 1+ PITTING-EDEMA TO RLE. ERYTHEMA OVER RIGHT DIXON NOTED. RIGHT FOOT DRESSED WITH A GAUZE AND TAPE DRESSING WITH SMALL AMOUNTS OF SEROSANGUINEOUS DRAINAGE PRESENT. PATIENT RATES HIS PAIN A 4/10 ON A 0-10 SCALE. PATIENT DESCRIBES THE PAIN DULL, AND STATES THAT IT ONLY HURTS WHILE AMBULATING. LEFT FOREARM TO INT. CALL LIGHT WITHIN REACH. PATIENT DENIES ANY NEEDS AT THIS TIME.
[2019-11-03 12:43] VITALS: BP 115/47; PULSE 65; TEMP 98.5
--- NOTE | 2019-11-03 14:35 | NUR ---
PATIENTS RIGHT FOOT DRESSING REMOVED BY PHYSICIAN. RIGHT FOOT RE-DRESSED WITH A NON-ADHERANT PAD, 4X4 GAUZE, SOFT ROLL AND COBAN. PATIENT TOLERATED WELL. NO NEEDS AT THIS TIME.
[2019-11-03 15:56] VITALS: BP 126/41; PULSE 56; TEMP 98.6
--- NOTE | 2019-11-03 18:58 | NUR ---
REPORT GIVEN TO DEBO TINOCO.
[2019-11-03 19:30] VITALS: BP 117/49; PULSE 55; TEMP 98.1
[2019-11-03 23:21] VITALS: BP 121/43; PULSE 56; TEMP 98.5
[2019-11-04] VITALS (7 sets, daily range): BP systolic 104–131; BP diastolic 41–68; PULSE 50–58; TEMP 97.3–98.6
--- NOTE | 2019-11-04 04:00 | NUR ---
Rested well this shift. No c/o pain/nausea/shortness of breath. Dressing to right foot CDI. VS remained stable. Slept in recliner-states he does this at home as well. Lower extremities elevated on pillows. Denies needs. Call light in reach. Will monitor.
[2019-11-04 07:50] LABS: BASO % 0.3 % (0.0-2.0); EOS # 0.3 (0.0-0.7); EOS % 3.8 % (0-4.0); GRAN # 5.5 (1.4-6.5); GRAN % 71.8 % (42.2-75.2); HEMOGLOBIN 10.5 g/dl (13.5-18.0); LYMPH # 1.3 (1.2-3.4); LYMPH % 16.5 % (20.0-51.0); MEAN CELL VOLUME 105 fl (80.0-100.0); MEAN CORPUSCULAR HEMOGLOBIN 34 pg (27.0-31.0); MEAN CORPUSCULAR HGB CONC 33 g/dl (33.0-37.0); MEAN PLATELET VOLUME 9.8 fl (7.4-10.4); MONO # 0.5 (0.1-0.6); MONO % 6.9 % (1.7-9.3); PLATELET COUNT 506 K/mm3 (130-400); RED BLOOD COUNT 3.07 M/mm3 (4.20-5.60); REDCELL DISTRIBUTION WIDTH-CV 16.6 % (11.5-14.5)
[2019-11-04 07:58] LABS: CALCIUM 9.1 mg/dL (8.4-10.2); CREATININE, serum 1.39 (0.66-1.25); POTASSIUM 4.1 mmol/L (3.4-5.0)
[2019-11-04 07:59] LABS: HEMATOCRIT 32.2 % (42.0-52.0)
--- NOTE | 2019-11-04 08:00 | NUR ---
PATIENT SITTING UP IN THE RECLINER THIS MORNING. PATIENT IS A&OX4. VSS. PATIENT DENIES PAIN AT THIS TIME. 1+ PITTING-EDEMA TO THE RLE. 2+ PITTING-EDEMA TO RIGHT FOOT. GAUZE AND COBAN DRESSING TO RIGHT FOOT IS CD&I. 1+ PITTING-EDEMA TO LEFT FOOT. LEFT FOREARM TO INT. CALL LIGHT WITHIN REACH. PATIENT DENIES ANY NEEDS AT THIS TIME.
--- NOTE | 2019-11-04 14:42 | NUR ---
SKIN REMOVED FROM BOTTOM OF FOOT PER DOCTOR ORDERS. PATIENT RIGHT FOOT ULCER DRESSED WITH AQUACEL AG, NON-ADHERANT PADS, 4X4 GAUZE, SOFT ROLL AND COBAN. PATIENT TOLERATED WELL. PATIENT GIVEN SNACK. NO OTHER NEEDS AT THIS TIME.
--- NOTE | 2019-11-04 19:07 | NUR ---
REPORT GIVEN TO DEBO TINOCO.
--- NOTE | 2019-11-04 20:00 | NUR ---
Report received. Assumed care for night shift manager. A&[id number] up in recliner. Dressing to right foot has shifted and falling off. Replaced at this time using foam taper per pt request. Small amount of serosanguineous drainage to old dressing. Denies pain/shortness of breath/nausea. Snack given. IV to left forearm flushes without difficulty. No s/s of infiltration noted. Denies questions/concerns. Call light in reach. Will monitor.
[2019-11-05 03:50] VITALS: BP 129/42; PULSE 51; TEMP 98.4
--- NOTE | 2019-11-05 05:00 | NUR ---
Rested most of this shift. Denied pain/shortness of breath/nausea. Denies needs. Call light in reach. Will monitor.
[2019-11-05 06:31] LABS: BASO % 0.5 % (0.0-2.0); EOS # 0.3 (0.0-0.7); EOS % 4.3 % (0-4.0); GRAN # 4.3 (1.4-6.5); GRAN % 67.8 % (42.2-75.2); LYMPH # 1.2 (1.2-3.4); LYMPH % 19.3 % (20.0-51.0); MEAN CELL VOLUME 105 fl (80.0-100.0); MEAN CORPUSCULAR HEMOGLOBIN 34 pg (27.0-31.0); MEAN CORPUSCULAR HGB CONC 33 g/dl (33.0-37.0); MEAN PLATELET VOLUME 9.7 fl (7.4-10.4); MONO # 0.5 (0.1-0.6); MONO % 7.3 % (1.7-9.3); PLATELET COUNT 559 K/mm3 (130-400); RED BLOOD COUNT 3.22 M/mm3 (4.20-5.60); REDCELL DISTRIBUTION WIDTH-CV 16.2 % (11.5-14.5)
[2019-11-05 06:34] LABS: HEMATOCRIT 33.8 % (42.0-52.0)
[2019-11-05 07:07] LABS: CALCIUM 9.3 mg/dL (8.4-10.2); CREATININE, serum 1.44 (0.66-1.25); POTASSIUM 4.5 mmol/L (3.4-5.0)
[2019-11-05 07:45] VITALS: BP 109/41; PULSE 52; TEMP 97.8
--- NOTE | 2019-11-05 08:49 | NUR ---
Sitting on edge of bed. Denies pain. Dressing to right foot CDI. 2+ bialt LE edema noted. Patient denies needs at this time.
[2019-11-05 11:24] VITALS: BP 120/53; PULSE 49; TEMP 97.5
[2019-11-05] MEDS ORDERED: NOVOLOG FLEX100 U/ML SQ (12:59)
[2019-11-05] MEDS ORDERED: LEVEMIR100 U/ML SQ (12:59)
[2019-11-05] MEDS ORDERED: AMOXICILLIN 8751 TAB PO (13:00)
[2019-11-05] MEDS ORDERED: DOXYCYCLINE 10100 MG PO (13:02)
--- NOTE | 2019-11-05 13:45 | NUR ---
Reviewed discharge instructions with the patient. Questions answered. Patient signs discharge paperwork. Discharge packet provided to the patient. Patient will call when his ride home arrives to ER entrance.
--- NOTE | 2019-11-05 14:49 | NUR ---
Patient ride here to pick him up. Assisted patient out to POV via wheelchair. Patient denies further questions or concerns.
--- NOTE | 2019-11-05 15:02 | NUR ---
The patient discharged home today, 11-04 with his Marlys. SW attempted to meet with the patient but he had already discharged. SW contacted the patient to ensure he did not have any questions or concern. The patient said he does not need anything and did not have any questions. There are no additional needs at this time.
== END 2019-11-05 14:49 | disposition home or self-care (01) | DRG 872 ==
LOC: COL.ER 13:57 → SURG 15:17
PROVIDERS: Emergency Medicine; Physician Assistant; ADMIT Hospitalist
DX: A41.51 Sepsis due to Escherichia coli [E. coli] (principal); E11.621 Type 2 diabetes mellitus with foot ulcer; N40.0 Benign prostatic hyperplasia without lower urinary tract symptoms; L97.519 Non-pressure chronic ulcer of other part of right foot with unspecified severity; N18.3 Chronic kidney disease, stage 3 (moderate); E11.22 Type 2 diabetes mellitus with diabetic chronic kidney disease; E11.42 Type 2 diabetes mellitus with diabetic polyneuropathy; E11.649 Type 2 diabetes mellitus with hypoglycemia without coma; E11.43 Type 2 diabetes mellitus with diabetic autonomic (poly)neuropathy; I12.9 Hypertensive chronic kidney disease with stage 1 through stage 4 chronic kidney disease, or unspecified chronic kidney disease; E78.5 Hyperlipidemia, unspecified; K21.9 Gastro-esophageal reflux disease without esophagitis; K31.84 Gastroparesis; D51.9 Vitamin B12 deficiency anemia, unspecified; F32.9 Major depressive disorder, single episode, unspecified; D63.1 Anemia in chronic kidney disease; I25.10 Atherosclerotic heart disease of native coronary artery without angina pectoris; G25.81 Restless legs syndrome; Z68.31 Body mass index [BMI] 31.0-31.9, adult; D47.3 Essential (hemorrhagic) thrombocythemia; E87.5 Hyperkalemia; E66.9 Obesity, unspecified; G47.00 Insomnia, unspecified; Z79.4 Long term (current) use of insulin; Z79.82 Long term (current) use of aspirin; Z79.891 Long term (current) use of opiate analgesic; Z87.891 Personal history of nicotine dependence; Z95.1 Presence of aortocoronary bypass graft; Z89.422 Acquired absence of other left toe(s); Z89.412 Acquired absence of left great toe
CPT/HCPCS: 99223-AI; 99232-AI; 99233-AI; 99239; J1650; J1815; J2543; J3370; J7030; J7040; J7050

== ENCOUNTER → 2020-02-06 | Outpatient (CLI) | payer MEDICARE ==
[~2020-02-06] MED LIST changes: +ASPIRIN 32325 MG/TA1 PO; +DOXYCYCLINE 10100 MG PO; +HYDROXYURE500 MG/CAP PO; +NATURAL MAGNES200 MG PO; +PEPCID AC 10MG10 MG PO; +ZYRTEC 10MG10 MG PO
== END ==
LOC: ZCOL.LAB 16:24
DX: E11.621 Type 2 diabetes mellitus with foot ulcer (principal); L98.8 Other specified disorders of the skin and subcutaneous tissue; T14.8XXA Other injury of unspecified body region, initial encounter

== ENCOUNTER → 2020-02-27 | Outpatient (CLI) | payer MEDICARE ==
[2020-02-27 17:28] LABS: CALCIUM 9.1 mg/dL (8.4-10.2); CREATININE, serum 1.63 (0.66-1.25); POTASSIUM 4.7 mmol/L (3.4-5.0)
== END ==
LOC: COL.LAB 16:00
PROVIDERS: Internal Medicine Nephrology
DX: E11.21 Type 2 diabetes mellitus with diabetic nephropathy (principal); E11.22 Type 2 diabetes mellitus with diabetic chronic kidney disease; I12.9 Hypertensive chronic kidney disease with stage 1 through stage 4 chronic kidney disease, or unspecified chronic kidney disease; N18.3 Chronic kidney disease, stage 3 (moderate)

== ENCOUNTER → 2020-05-12 | Outpatient (CLI) | payer MEDICARE ==
[~2020-05-12] MED LIST changes: +LYRICA 100MG C100 M1 PO; +MAG-OX 400400 MG/TAB PO; +MONODOX100 PO
== END ==
LOC: ZCOL.LAB 19:26
DX: E13.621 Other specified diabetes mellitus with foot ulcer (principal)

== ENCOUNTER 2020-06-21 18:29 | Emergency (ER) | payer MEDICARE ==
[2008-10-28 06:45] VITALS: BP 117/60
[~2020-06-21] VITALS: Ht 185.4 cm; Wt 118.2 kg
[2020-06-21] MEDS ORDERED: BACTRIM DS 8001 TAB PO (19:15)
[2020-06-21 19:46] LABS: BASO % 0.3 % (0.0-2.0); EOS # 0.3 (0.0-0.7); EOS % 3.8 % (0-4.0); GRAN # 6.5 (1.4-6.5); GRAN % 74.8 % (42.2-75.2); LYMPH # 1.1 (1.2-3.4); LYMPH % 12.6 % (20.0-51.0); MEAN CELL VOLUME 105 fl (80.0-100.0); MEAN CORPUSCULAR HGB CONC 32 g/dl (33.0-37.0); MEAN PLATELET VOLUME 10.3 fl (7.4-10.4); MONO # 0.7 (0.1-0.6); MONO % 7.6 % (1.7-9.3); PLATELET COUNT 732 K/mm3 (130-400); RED BLOOD COUNT 2.82 M/mm3 (4.20-5.60); REDCELL DISTRIBUTION WIDTH-CV 15.6 % (11.5-14.5)
[2020-06-21 19:47] LABS: HEMATOCRIT 29.5 % (42.0-52.0); HEMOGLOBIN 9.4 g/dl (13.5-18.0); MEAN CORPUSCULAR HEMOGLOBIN 33 pg (27.0-31.0)
[2020-06-21 19:56] VITALS: BP 156/64; PULSE 57; TEMP 97.6
== END 2020-06-21 19:57 | disposition home or self-care (01) ==
LOC: COL.ER 18:29
PROVIDERS: Physician Assistant
DX: L03.90 Cellulitis, unspecified (principal); I25.10 Atherosclerotic heart disease of native coronary artery without angina pectoris; E11.9 Type 2 diabetes mellitus without complications; D47.3 Essential (hemorrhagic) thrombocythemia; Z87.891 Personal history of nicotine dependence; Z79.4 Long term (current) use of insulin; Z79.82 Long term (current) use of aspirin

== ENCOUNTER → 2020-06-23 | Outpatient (CLI) | payer MEDICARE ==
[~2020-06-23] MED LIST changes: +BACTRIM DS 8001 TAB PO
== END ==
LOC: ZCOL.LAB 17:05
DX: L03.119 Cellulitis of unspecified part of limb (principal)

== ENCOUNTER 2020-07-04 17:06 | Emergency (ER) | payer OTHER ==
[2008-10-28 06:45] VITALS: BP 117/60
[~2020-07-04] VITALS: Ht 185.4 cm; Wt 118.2 kg
[2020-07-04 17:18] VITALS: TEMP 98
[2020-07-04 18:01] LABS: HEMOGLOBIN 10.1 g/dl (13.5-18.0); MEAN CELL VOLUME 103 fl (80.0-100.0); MEAN CORPUSCULAR HEMOGLOBIN 33 pg (27.0-31.0); MEAN CORPUSCULAR HGB CONC 32 g/dl (33.0-37.0); MEAN PLATELET VOLUME 10.4 fl (7.4-10.4); PLATELET COUNT 890 K/mm3 (130-400); RED BLOOD COUNT 3.07 M/mm3 (4.20-5.60); REDCELL DISTRIBUTION WIDTH-CV 15.3 % (11.5-14.5)
[2020-07-04 18:10] LABS: HEMATOCRIT 31.7 % (42.0-52.0)
[2020-07-04 18:19] LABS: ALBUMIN 3.9 gm/dL (3.5-5.0); BILIRUBIN,TOTAL 0.5 mg/dL (0.0-1.0); C-REACTIVE PROTEIN 1.1 mg/dL (0.0-0.9); CALCIUM 8.9 mg/dL (8.4-10.2); CREATININE, serum 1.59 (0.66-1.25); POTASSIUM 4.8 mmol/L (3.4-5.0); TOTAL PROTEIN 6.5 gm/dL (6.4-8.2)
[2020-07-04 19:35] LABS: BAND 1 % (0-10); LYMPHOCYTE 13 % (20.0-51.0); NEUTROPHILS 81 % (42.0-75.2)
[2020-07-04 19:36] LABS: ANISOCYTOSIS 1+; HYPOCHROMIA 2+; PLATELET ESTIMATE INCREASED (NORMAL)
[2020-07-04 19:37] VITALS: BP 131/47; PULSE 56
[2020-07-04 19:37] LABS: TOXIC GRANULATION PRESENT
[2020-07-04 19:38] LABS: OVALOCYTES 1+
== END 2020-07-04 19:45 | disposition home or self-care (01) ==
LOC: COL.ER 17:06
PROVIDERS: Nurse Practitioner
DX: S81.801A Unspecified open wound, right lower leg, initial encounter (principal); S81.802A Unspecified open wound, left lower leg, initial encounter; D47.3 Essential (hemorrhagic) thrombocythemia; E66.9 Obesity, unspecified; Z87.891 Personal history of nicotine dependence; Z79.82 Long term (current) use of aspirin; X58.XXXA Exposure to other specified factors, initial encounter

== ENCOUNTER 2020-07-09 05:08 | Day surgery (SDC) | payer MEDICARE ==
[2008-10-28 06:45] VITALS: BP 117/60
[2020-07-09] VITALS (7 sets, daily range): BP systolic 122–152; BP diastolic 47–543; PULSE 47–66; TEMP 97.4–98.5
[~2020-07-09] VITALS: Ht 185.4 cm; Wt 118.2 kg
--- NOTE | 2020-07-09 06:10 | NUR ---
Lab at bedside to obtain blood from IV start for K+ level as ordered. 20G IV started in right hand with one stick, NS Infusing without difficulty. Blood obtaine also used to check blood sugar witha result of 143.
--- NOTE | 2020-07-09 06:33 | NUR ---
Lab called to check on result of K+ level that was drawn this morning. Result was reported to the nurse from the lab a 4.4. The patient's was called at her reques to let her know the K+ level.
--- NOTE | 2020-07-09 06:49 | NUR ---
The patient was taken via cart to the PACU to have his nerve block placed prior to OR. The patient's chart was sent with him. Will continue to monitor the patient when he returns to [place] [facility] post operatively.
--- NOTE | 2020-07-09 08:05 | NUR ---
The patient arrived back to [place] [facility] from the operating room at this time. The patient appears drowsy but arouses easily to his name. The patient's post operative vital signs were started at this time. The patient has an alecia wrap dressing and post op shoe in place to his left foot and both appear clean, dry and intact. The patient received a nerve block for surgery and does not appear to be in any pain or distress at this time. Call light is within reach. Will continue to monitor the patient.
--- NOTE | 2020-07-09 08:20 | NUR ---
The patient appears to be resting quietly on the cart with his eyes closed at this time. Respirations even and unlabored. Call light is within reach. Will continue to monitor the patient.
--- NOTE | 2020-07-09 08:35 | NUR ---
The patient continues to rest quietly on the cart with his eyes closed. Respirations even and unlabored. Vital signs appear stable. Will continue to monitor the patient.
--- NOTE | 2020-07-09 08:50 | NUR ---
The patient appears to be more alert at this time and agrees to try some apple juice and chocolate pudding.
--- NOTE | 2020-07-09 09:20 | NUR ---
The patient has finished his food and drink and denies wanting anything further at this time. Vital signs appear table. The patient states he wants to rest a "little longer". Will continue to monitor the patient.
--- NOTE | 2020-07-09 09:50 | NUR ---
Discharge instructions were reviewed with the patient at this time. He verbalized understanding and has no questions for the nurse at this time. The patient's IV to his right hand was removed and a pressure dressing was applied to the site. The nurse assisted the patient to get dressed and he appeared to tolerate the activity well.
--- NOTE | 2020-07-09 10:05 | NUR ---
Discharge instructions were reviewed with the patient's , Marlys, at this time. She verbalized understanding and has no questions for the nurse at this time.
--- NOTE | 2020-07-09 10:12 | NUR ---
The patient was escorted out via wheelchair to a private vehicle by DEBO Mancuso. The patient's belongings and discharge paperwork were sent with him. The patient's is present to drive him home.
== END 2020-07-09 10:15 | disposition home or self-care (01) ==
LOC: SDCO 05:08
DX: L89.894 Pressure ulcer of other site, stage 4 (principal); E11.621 Type 2 diabetes mellitus with foot ulcer; E11.42 Type 2 diabetes mellitus with diabetic polyneuropathy; E11.69 Type 2 diabetes mellitus with other specified complication; M86.9 Osteomyelitis, unspecified; M20.42 Other hammer toe(s) (acquired), left foot; E11.22 Type 2 diabetes mellitus with diabetic chronic kidney disease; I12.9 Hypertensive chronic kidney disease with stage 1 through stage 4 chronic kidney disease, or unspecified chronic kidney disease; Z20.822 Contact with and (suspected) exposure to COVID-19; N18.30 Chronic kidney disease, stage 3 unspecified; E78.5 Hyperlipidemia, unspecified; I25.10 Atherosclerotic heart disease of native coronary artery without angina pectoris; K21.9 Gastro-esophageal reflux disease without esophagitis; G25.81 Restless legs syndrome; F32.9 Major depressive disorder, single episode, unspecified; Z79.4 Long term (current) use of insulin; Z89.422 Acquired absence of other left toe(s); Z79.2 Long term (current) use of antibiotics; Z79.82 Long term (current) use of aspirin; Z79.899 Other long term (current) drug therapy; Z87.891 Personal history of nicotine dependence; Z95.1 Presence of aortocoronary bypass graft; Z79.891 Long term (current) use of opiate analgesic
CPT/HCPCS: J0690; J2250; J2405; J2704; J3010; J7030

== ENCOUNTER → 2020-10-09 | Outpatient (CLI) | payer MEDICARE | LOC: ZCOL.LAB 19:42 | DX: L97.909 Non-pressure chronic ulcer of unspecified part of unspecified lower leg with unspecified severity (principal) ==

== ENCOUNTER 2021-12-15 12:57 | Emergency (ER) | payer MEDICARE ==
[~2021-12-15] VITALS: Ht 185.4 cm; Wt 119.5 kg
[2021-12-15 13:06] VITALS: TEMP 98.3
[2021-12-15 13:35] LABS: MEAN CELL VOLUME 111 fl (80.0-100.0); MEAN CORPUSCULAR HGB CONC 31 g/dl (33.0-37.0); MEAN PLATELET VOLUME 11.5 fl (7.4-10.4); PLATELET COUNT 640 K/mm3 (130-400); RED BLOOD COUNT 2.38 M/mm3 (4.20-5.60); REDCELL DISTRIBUTION WIDTH-CV 20.5 % (11.5-14.5)
[2021-12-15 13:38] LABS: HEMATOCRIT 26.4 % (42.0-52.0); HEMOGLOBIN 8.2 g/dl (13.5-18.0); MEAN CORPUSCULAR HEMOGLOBIN 34 pg (27-31)
[2021-12-15 13:57] LABS: ALBUMIN 3.7 gm/dL (3.4-4.8); BILIRUBIN,TOTAL 0.6 mg/dL (0.2-1.2); C-REACTIVE PROTEIN 1.05 mg/dL (0.00-0.50); CALCIUM 8.8 mg/dL (8.4-10.2); CREATININE, serum 1.72 mg/dL (0.72-1.25); POTASSIUM 4.7 mmol/L (3.5-4.5); TOTAL PROTEIN 6.5 gm/dL (6.2-8.1)
[2021-12-15 14:03] LABS: TROPONIN-I 0.023 ng/mL (0.00-0.033)
[2021-12-15] MEDS ORDERED: BACTRIM DS 8001 TAB PO (14:27)
[2021-12-15 14:32] LABS: BAND 6 % (0-10); BASOPHIL 1 % (0-2); EOSINOPHIL 4 % (0-4); METAMYELOCYTE 1 % (0-0); NEUTROPHILS 72 % (42.0-75.2); PLATELET ESTIMATE INCREASED (NORMAL); POLYCHROMASIA 1+
[2021-12-15 14:33] LABS: ANISOCYTOSIS 3+; MICROCYTOSIS 1+
[2021-12-15 14:34] LABS: HYPOCHROMIA 3+; OVALOCYTES 1+; POIKILOCYTOSIS 1+
[2021-12-15 14:35] LABS: LYMPHOCYTE 15 % (20.0-51.0)
[2021-12-15 14:50] VITALS: BP 135/53; PULSE 54
== END 2021-12-15 14:50 | disposition home or self-care (01) ==
LOC: COL.ER 12:57
PROVIDERS: Emergency Medicine
DX: L03.317 Cellulitis of buttock (principal); D64.9 Anemia, unspecified; E70.8 Other disorders of aromatic amino-acid metabolism; D72.829 Elevated white blood cell count, unspecified; R46.0 Very low level of personal hygiene; E66.9 Obesity, unspecified; Z87.891 Personal history of nicotine dependence

== ENCOUNTER 2022-03-02 06:43 | Day surgery (SDC) | payer MEDICARE ==
[2008-10-28 06:45] VITALS: BP 117/60
[~2022-03-02] VITALS: Ht 185.4 cm; Wt 108.5 kg
[2022-03-02] MEDS ORDERED: TYLENOL 325MG325 MG PO (08:34)
[2022-03-02] MEDS ORDERED: REQUIP0.25 MG PO (08:35)
[2022-03-02] MEDS ORDERED: DULOXETINE (08:35)
[2022-03-02 08:38] VITALS: BP 144/47; PULSE 51; TEMP 98.6
--- NOTE | 2022-03-02 09:16 | NUR ---
0850 - PT was taken to the PACU by Abdi via cart.
[2022-03-02 09:43] VITALS: BP 145/53; PULSE 76; TEMP 97.3
[2022-03-02 09:58] VITALS: BP 145/49; PULSE 64
--- NOTE | 2022-03-02 10:00 | NUR ---
0943 - PT arrives from PACU escorted by DEBO Adam; monitors applied and vitals obtained. and daughter remain present. PT is laying on his stomach and was fully assisted by x2 RN to reposition to backside. Warm blankets provided and additional pillows provided. PT denies pain/nausea. L sided biopsy site is covered w/ bandage w/ gauze underneath; clean dry and intact. NO drainage noted. PT provided snack and drink; call brock is within reach if needed. 0958 - Vitals obtained. PT continues to snack and drink. Call brock remains within reach if needed.
[2022-03-02 10:06] LABS: MEAN CELL VOLUME 113 fl (80.0-100.0); MEAN CORPUSCULAR HGB CONC 32 g/dl (33.0-37.0); MEAN PLATELET VOLUME 11.7 fl (7.4-10.4); PLATELET COUNT 399 K/mm3 (130-400); RED BLOOD COUNT 1.97 M/mm3 (4.20-5.60); REDCELL DISTRIBUTION WIDTH-CV 22.3 % (11.5-14.5)
[2022-03-02 10:09] LABS: HEMATOCRIT 22.2 % (42.0-52.0); MEAN CORPUSCULAR HEMOGLOBIN 36 pg (27-31)
[2022-03-02 10:13] VITALS: BP 144/47; PULSE 50
[2022-03-02 10:36] LABS: BAND 3 % (0-10); EOSINOPHIL 5 % (0-4); LYMPHOCYTE 9 % (20.0-51.0); METAMYELOCYTE 1 % (0-0); NEUTROPHILS 77 % (42.0-75.2)
[2022-03-02 10:40] LABS: PLATELET ESTIMATE NORMAL (NORMAL)
[2022-03-02 10:43] LABS: ANISOCYTOSIS 3+
[2022-03-02 10:44] LABS: HYPOCHROMIA 2+; OVALOCYTES 1+; POIKILOCYTOSIS 1+
[2022-03-02 10:45] LABS: MICROCYTOSIS 2+; POLYCHROMASIA 1+
--- NOTE | 2022-03-02 11:08 | NUR ---
1013 - VSS. PT has finished snack and drink; continues to deny pain/nausea and expressed desire to be discharged. Call brock remains within reach. Side rails x2. 1030 - IV discontinued by an RN; per report, catheter tip intact and pressure bandage applied, no redness/swelling noted. DC instructions and educational material reviewed w/ PT who verbalized understanding and signed the related paperwork. Questions answered to PT satisfaction. PT assisted w/ changing into personal clothes by RN. PT then dismissed from [facility] via wheelchair to the PT entrence. PT has DC packet and personal belongings, PT was transferred into the care of his , who is driving private car.
== END 2022-03-02 10:45 | disposition home or self-care (01) ==
LOC: SDCO 06:43
PROVIDERS: Pathology Anatomic Pathology & Clinical Pathology
DX: D47.4 Osteomyelofibrosis (principal); D64.9 Anemia, unspecified; Z87.891 Personal history of nicotine dependence; K21.9 Gastro-esophageal reflux disease without esophagitis; Z79.899 Other long term (current) drug therapy
CPT/HCPCS: J0690; J1100; J2405; J2704; J3010; J7120

== ENCOUNTER 2022-04-18 19:19 | Observation (INO) | payer MEDICARE ==
[~2022-04-18] VITALS: Ht 185.4 cm; Wt 118.0 kg
[~2022-04-18 19:19] MED LIST changes: +DULOXETINE; +TYLENOL 325MG325 MG PO
[2022-04-18 20:33] LABS: MEAN CELL VOLUME 105 fl (80.0-100.0); MEAN CORPUSCULAR HGB CONC 31 g/dl (33.0-37.0); MEAN PLATELET VOLUME 11.7 fl (7.4-10.4); PLATELET COUNT 583 K/mm3 (130-400); RED BLOOD COUNT 2.62 M/mm3 (4.20-5.60); REDCELL DISTRIBUTION WIDTH-CV 22.4 % (11.5-14.5)
[2022-04-18 20:37] LABS: HEMATOCRIT 27.5 % (42.0-52.0); HEMOGLOBIN 8.5 g/dl (13.5-18.0); MEAN CORPUSCULAR HEMOGLOBIN 32 pg (27-31)
[2022-04-18 21:02] LABS: ANISOCYTOSIS 3+; BAND 8 % (0-10); EOSINOPHIL 1 % (0-4); LYMPHOCYTE 7 % (20.0-51.0); NEUTROPHILS 82 % (42.0-75.2); PLATELET ESTIMATE INCREASED (NORMAL)
[2022-04-18 21:03] LABS: HYPOCHROMIA 3+
[2022-04-18 21:04] LABS: OVALOCYTES 1+
[2022-04-18 21:47] LABS: BILIRUBIN,TOTAL 0.9 mg/dL (0.2-1.2); CALCIUM 9.1 mg/dL (8.4-10.2); CREATININE, serum 2.71 mg/dL (0.72-1.25); POTASSIUM 4.6 mmol/L (3.5-4.5); TOTAL PROTEIN 6.5 gm/dL (6.2-8.1)
[2022-04-18 22:19] LABS: COLLECTION METHOD CLEAN CATCH
[2022-04-18 22:24] LABS: PH 5.5 (5.0-8.5); URINE APPEARANCE Cloudy (CLEAR/HAZY); URINE BLOOD 2+ (NEGATIVE); URINE COLOR Yellow (YELLOW); URINE PROTEIN(semi-quant) 2+ (NEGATIVE)
[2022-04-18 22:25] LABS: URINE GLUCOSE Negative (NEGATIVE); URINE KETONE Negative (NEGATIVE); URINE NITRATE Negative (NEGATIVE); URINE UROBILINOGEN 0.2 E.U/dL (0.2-1.0)
[2022-04-18 22:27] LABS: MUCOUS Present (NOT PRESENT); SQUAMOUS EPITHELIAL None Seen /hpf (0-10); URINE BACTERIA Many /hpf (NONE SEEN); URINE RBC 20-50 /hpf (0-2)
[2022-04-18] MEDS ORDERED: PEPCID 20MG TAB20 MG PO (22:56)
[2022-04-18] MEDS ORDERED: LEVEMIR FLEX100 U/ML SQ (22:56)
[2022-04-18] MEDS ORDERED: TOPROL XL 25MG25 MG PO (22:56)
[2022-04-18] MEDS ORDERED: CYMBALTA 30MG30 MG PO (22:57)
[2022-04-18] MEDS ORDERED: MULTI VITAMINS1 TAB PO (22:57)
[2022-04-18] MEDS ORDERED: GLUCOSAMINE 1000 PO (22:57)
[2022-04-18] MEDS ORDERED: NORCO 325 MG-7.1 TAB PO (23:17)
[2022-04-18] MEDS ORDERED: LYRICA 100MG C100 M1 PO (23:18)
[2022-04-18] MEDS ORDERED: ZYRTEC 10MG10 MG PO (23:20)
[2022-04-18] MEDS ORDERED: WELLBUTRIN SR150 M1 PO (23:22)
[2022-04-18 23:42] LABS: INR 1.4 (0.8-3.0); PROTHROMBIN TIME 16.4 SECONDS (9.7-12.8)
[2022-04-19] VITALS (8 sets, daily range): BP systolic 97–142; BP diastolic 39–60; PULSE 54–102; TEMP 98.2–99.6
--- NOTE | 2022-04-19 00:30 | NUR ---
PATIENT WAS RECEIVED FROM ED ON A CART.PATIENT IS ON RA.PATIENT IS ALERT.PATIENT TAKES PILLS WHOLE.BLOOD GUCOSE CHECK 91MG/DL.NIGHT PROVIDER INFORMED INSULIN NOT ADMINISTERED.PATIENT STATES THAT WHEN BLOOD GLUCOSE IS BELOW 100MG/DL HE DOES ADMINISTER INSULIN.PATISARAI WAS OFFERED A SANDWICH.SAFETU MEADUES IN PLACE.NO OTHER NEEDS AT THIS TIME.
--- NOTE | 2022-04-19 05:45 | NUR ---
PATIENT IS SLEEPING RIGHT NOW.PATIENT IS COOPERATIVE AND FOLLOWS DIRECTIONS.PATIENT IS ALERT.IV FLUIDS ARE INFUSING WELL.IGLESIAS CATHETER IS DRAINING FREELY. PATIENT HAS AMPUTATION TO THE RT FOOT TO THE 5TH TOE AND PARTIAL AMPUTATION TO THE 2ND TOE,LT FOOT 4TH,5TH AND GREAT TOE PARTIAL. PATIENT STATES THAT HE DOES NOT AMBULATE AT HOME.NO OTHER NEEDS AT THUSNURDE
--- NOTE | 2022-04-19 09:00 | NUR ---
Contacted Dr. Hester and order for PICC placement is on hold at this time.
--- NOTE | 2022-04-19 09:16 | NUR ---
PT UP TO SOB WITH THERAPY. PT EATING BREAKFAST AT THIS TIME. SPOKE WITH ANSELMO STAPLES AND SHE HAD REVIEWED PT WITH DR. ALCOCER AND DECISION WAS MADE TO HOLD PLACING PICC LINE AT THIS TIME.
[2022-04-19 14:22] LABS: BASO % 0.2 % (0.0-2.0); EOS # 0.2 K/mm3 (0.0-0.7); EOS % 1.1 % (0.0-4.0); GRAN # 13.8 K/mm3 (1.4-6.5); GRAN % 87.5 % (42.2-75.2); LYMPH # 0.6 K/mm3 (1.2-3.4); LYMPH % 3.6 % (20.0-51.0); MEAN CELL VOLUME 103 fl (80.0-100.0); MEAN CORPUSCULAR HGB CONC 32 g/dl (33.0-37.0); MEAN PLATELET VOLUME 11.4 fl (7.4-10.4); MONO % 6.6 % (1.7-9.3); RED BLOOD COUNT 2.25 M/mm3 (4.20-5.60); REDCELL DISTRIBUTION WIDTH-CV 22.6 % (11.5-14.5)
[2022-04-19 14:23] LABS: HEMATOCRIT 23.1 % (42.0-52.0); HEMOGLOBIN 7.3 g/dl (13.5-18.0); MEAN CORPUSCULAR HEMOGLOBIN 32 pg (27-31)
[2022-04-19 14:26] LABS: PLATELET COUNT 454 K/mm3 (130-400)
[2022-04-19 14:36] LABS: CALCIUM 8.2 mg/dL (8.4-10.2); CREATININE, serum 2.24 mg/dL (0.72-1.25); POTASSIUM 4.5 mmol/L (3.5-4.5)
--- NOTE | 2022-04-19 15:26 | NUR ---
SW met with patient to complete intake and discuss discharge plan. Patients two daughters are present at bedside. Patient reports that he lives in [place] at home with his Marlys ([phone]). Patient's helps him with his ADL's. He utilizes a cane and a walker to assist with mobility. He is scheduled to get an electric wheelchair delivered on . He has no home oxygen needs. PCP is Laurel Garsia in [place] and he utilizes [facility] for prescriptions. Patient reports that he does have a DPOA-HC established listing his Marlys and his daughter Lauryn Burks ([phone]). Discharge plan: Home pending PT/OT paul
--- NOTE | 2022-04-19 22:59 | NUR ---
Patient A/Ox4, NAD, remains on room air, head to toe assessment done, denies the need for pain medicine at this time, no further needs or concerns, call light and personal items within reach.
[2022-04-20 04:02] VITALS: BP 114/44; PULSE 93; TEMP 98.9
[2022-04-20 07:09] LABS: CREATININE, serum 1.9 mg/dL (0.72-1.25); POTASSIUM 5.1 mmol/L (3.5-4.5)
[2022-04-20 07:28] LABS: BASO % 0.1 % (0.0-2.0); EOS # 0.5 K/mm3 (0.0-0.7); EOS % 3.2 % (0.0-4.0); GRAN % 84.9 % (42.2-75.2); LYMPH # 0.8 K/mm3 (1.2-3.4); LYMPH % 5.4 % (20.0-51.0); MEAN CELL VOLUME 104 fl (80.0-100.0); MEAN CORPUSCULAR HGB CONC 31 g/dl (33.0-37.0); MEAN PLATELET VOLUME 12.4 fl (7.4-10.4); MONO # 0.8 K/mm3 (0.1-0.6); MONO % 5.3 % (1.7-9.3); RED BLOOD COUNT 2.19 M/mm3 (4.20-5.60); REDCELL DISTRIBUTION WIDTH-CV 22.4 % (11.5-14.5)
[2022-04-20 07:44] VITALS: BP 110/46; PULSE 96; TEMP 98.2
[2022-04-20 08:28] LABS: HEMATOCRIT 22.8 % (42.0-52.0); MEAN CORPUSCULAR HEMOGLOBIN 32 pg (27-31)
[2022-04-20 08:30] LABS: PLATELET COUNT 503 K/mm3 (130-400)
--- NOTE | 2022-04-20 08:33 | NUR ---
PT UP TO RECLINER FOR BREAKFAST. AM MEDS GIVEN PER ORDERS. PT IS A/O X4, IGLESIAS CATHETER TO DD. IV RUNNING PER ORDERS. PT HAD AN AM BG OF 70. SLIDING SCALE HELD PER PARAMETERS.
--- NOTE | 2022-04-20 09:56 | NUR ---
Initial visit; Patient thanked Instructional Material Director for looking in on him and offering God's blessings. Hakan was receptive to having Instructional Material Director keep him in her prayers.
[2022-04-20 11:22] VITALS: BP 113/49; PULSE 73; TEMP 98
[2022-04-20 16:57] VITALS: BP 117/49; PULSE 91; TEMP 98.8
[2022-04-20 20:00] VITALS: BP 126/49; PULSE 89; TEMP 98.3
[2022-04-21] VITALS: BP 129/42; PULSE 61; TEMP 98.2
[2022-04-21 04:00] VITALS: BP 122/58; PULSE 89; TEMP 98
--- NOTE | 2022-04-21 05:00 | NUR ---
PT transferred to room 316 per bed, awake, alert and oriented x4, willson patent/secure, draining yellow, slightly cloudy urine. INT to RAC patent/intact. SSI required after dinner, NC q4 WNL, no pain meds requested for rt knee pain this shift. educated pt on need to move to medical floor, verbalizes understanding, this RN to maintain responsibility of pt until dayshift RN arrives and report given.
[2022-04-21 07:26] LABS: CALCIUM 8.2 mg/dL (8.4-10.2); CREATININE, serum 1.67 mg/dL (0.72-1.25); POTASSIUM 4.9 mmol/L (3.5-4.5)
[2022-04-21 07:41] LABS: MEAN CELL VOLUME 106 fl (80.0-100.0); MEAN CORPUSCULAR HGB CONC 31 g/dl (33.0-37.0); MEAN PLATELET VOLUME 11.5 fl (7.4-10.4); PLATELET COUNT 562 K/mm3 (130-400); REDCELL DISTRIBUTION WIDTH-CV 22.3 % (11.5-14.5)
[2022-04-21 07:48] VITALS: BP 130/62; PULSE 95; TEMP 97.6
[2022-04-21 07:48] LABS: HEMATOCRIT 23.3 % (42.0-52.0); HEMOGLOBIN 7.1 g/dl (13.5-18.0); MEAN CORPUSCULAR HEMOGLOBIN 32 pg (27-31)
[2022-04-21 08:33] LABS: ANISOCYTOSIS 3+; BAND 4 % (0-10); EOSINOPHIL 5 % (0-4); HYPOCHROMIA 3+; PLATELET ESTIMATE INCREASED (NORMAL)
[2022-04-21 08:34] LABS: OVALOCYTES 1+
[2022-04-21 08:35] LABS: LYMPHOCYTE 7 % (20.0-51.0); NEUTROPHILS 80 % (42.0-75.2)
[2022-04-21] MEDS ORDERED: CEFTIN 250250 MG/TAB PO ×2 (10:51)
[2022-04-21 11:33] VITALS: BP 114/49; PULSE 95
--- NOTE | 2022-04-21 11:53 | NUR ---
AFTER PATIENTS IV WAS REMOVED, PATIENT SPOKE WITH FAMILY, AND HAS NO AGREED FOR SNF PLACEMENT, SW INFORMED.
--- NOTE | 2022-04-21 16:12 | NUR ---
Technical Support Representative attended clinical rounds with the team and patient to discharge home with Home Health. SW met with patient to review discharge plan. Patient does not want SNF and prefers to go home with HH. Patient has used [facility] in the past and wants to use them again. [facility] to [facility] . ASIF presented IM form to patient who verbalized understanding and provided signature. SW placed form in chart and provided copy to patient. Later on, patient's daughters and arrived and do not feel patient can return home. Patient now is agreeable to SNF and preferences are 1) [facility] and 2) [facility]. ASIF faxed referrals. ASIF also faxed clinicals to [facility] for prior auth.
[2022-04-21 16:19] VITALS: BP 132/87; PULSE 56; TEMP 98.1
[2022-04-21 20:41] VITALS: BP 123/53; PULSE 88; TEMP 98.4
[2022-04-22 00:12] VITALS: BP 115/51; PULSE 56; TEMP 98.6
[2022-04-22 04:44] VITALS: BP 136/49; PULSE 54; TEMP 97.8
[2022-04-22 06:29] LABS: MEAN CELL VOLUME 106 fl (80.0-100.0); MEAN CORPUSCULAR HGB CONC 30 g/dl (33.0-37.0); MEAN PLATELET VOLUME 11.3 fl (7.4-10.4); PLATELET COUNT 655 K/mm3 (130-400); RED BLOOD COUNT 2.28 M/mm3 (4.20-5.60); REDCELL DISTRIBUTION WIDTH-CV 21.6 % (11.5-14.5)
[2022-04-22 06:34] LABS: HEMATOCRIT 24.2 % (42.0-52.0); HEMOGLOBIN 7.3 g/dl (13.5-18.0); MEAN CORPUSCULAR HEMOGLOBIN 32 pg (27-31)
[2022-04-22 07:07] LABS: CALCIUM 8.6 mg/dL (8.4-10.2); CREATININE, serum 1.67 mg/dL (0.72-1.25); POTASSIUM 5.3 mmol/L (3.5-4.5)
[2022-04-22 07:10] VITALS: BP 142/52; PULSE 54; TEMP 97.5
[2022-04-22 07:18] LABS: BAND 10 % (0-10); EOSINOPHIL 8 % (0-4); LYMPHOCYTE 5 % (20.0-51.0); METAMYELOCYTE 2 % (0-0); NEUTROPHILS 73 % (42.0-75.2); OVALOCYTES 1+
[2022-04-22 07:19] LABS: PLATELET ESTIMATE INCREASED (NORMAL)
--- NOTE | 2022-04-22 09:01 | NUR ---
PT ALERT AND ORIENTED SITTING UP IN BED. VITALS STABLE ON ROOM AIR. PT DENIES PAIN. CALL LIGHT WITHIN REACH. NO FURTHER NEES AT THE MOMENT.
[2022-04-22] MEDS ORDERED: CEFTIN 250250 MG/TAB PO (10:49)
[2022-04-22 11:11] VITALS: BP 136/46; PULSE 50; TEMP 97.5
--- NOTE | 2022-04-22 13:02 | NUR ---
Flame Cutting Machine Operator spoke with [facility] and obtained approved authorization for SNF. Auth #[id number]. Approved for three days starting the . Steamfitter is Kaitlynn Santos. ASIF contacted Romy at [facility] and faxed clinical updates. Romy advised they can accept patient today. ASIF faxed discharge orders. Transport time set for 1300. ASIF contacted patient's , Marlys and provided transport time. ASIF met with patient who is agreeable to [facility] today. Discharge Plan: [facility]
--- NOTE | 2022-04-22 13:28 | NUR ---
PT ALERT AND ORIENTED WITH VITALS STABLE ON ROOM AIR. PT WAS TRANSPORTED TO [facility] BY WHEELCHAIR WITH HIS BELONGINGS. DISCHARGE PACKAGE GIVEN. NO FURTHER NEEDS AT THE MOMENT.
== END 2022-04-22 13:05 | disposition home or self-care (01) ==
LOC: COL.ER 19:19 → SURG 22:52 → COL.ER 22:52 → SURG 04-19 16:45 → MEDICAL 04-20 21:30
PROVIDERS: Emergency Medicine; Hospitalist; Nurse Practitioner Family; Physician Assistant; ADMIT Internal Medicine
DX: A41.9 Sepsis, unspecified organism (principal); B95.1 Streptococcus, group B, as the cause of diseases classified elsewhere; R41.82 Altered mental status, unspecified; N17.9 Acute kidney failure, unspecified; E11.22 Type 2 diabetes mellitus with diabetic chronic kidney disease; E11.40 Type 2 diabetes mellitus with diabetic neuropathy, unspecified; I12.9 Hypertensive chronic kidney disease with stage 1 through stage 4 chronic kidney disease, or unspecified chronic kidney disease; N18.30 Chronic kidney disease, stage 3 unspecified; E87.5 Hyperkalemia; E78.5 Hyperlipidemia, unspecified; I25.10 Atherosclerotic heart disease of native coronary artery without angina pectoris; D75.81 Myelofibrosis; D53.9 Nutritional anemia, unspecified; D75.839 Thrombocytosis, unspecified; G25.81 Restless legs syndrome; F32.A Depression, unspecified; Z87.39 Personal history of other diseases of the musculoskeletal system and connective tissue; Z95.5 Presence of coronary angioplasty implant and graft; Z89.429 Acquired absence of other toe(s), unspecified side; Z79.899 Other long term (current) drug therapy; Z79.4 Long term (current) use of insulin
CPT/HCPCS: C9113; G0378; J0696; J1644; J1815; J7030

== ENCOUNTER 2022-07-02 17:26 | Inpatient (IN) | payer MEDICARE ==
[~2022-07-02] VITALS: Ht 185.4 cm; Wt 116.3 kg
[~2022-07-02 17:26] MED LIST changes: +CEFTIN 250250 MG/TAB PO; +CYMBALTA 30MG30 MG PO; +LEVEMIR FLEX100 U/ML SQ; +MULTI VITAMINS1 TAB PO; +PEPCID 20MG TAB20 MG PO
[2022-07-02 18:31] LABS: MEAN CELL VOLUME 101 fl (80.0-100.0); MEAN CORPUSCULAR HGB CONC 32 g/dl (33.0-37.0); MEAN PLATELET VOLUME 11.7 fl (7.4-10.4); PLATELET COUNT 388 K/mm3 (130-400); RED BLOOD COUNT 2.29 M/mm3 (4.20-5.60); REDCELL DISTRIBUTION WIDTH-CV 22.7 % (11.5-14.5)
[2022-07-02 18:42] LABS: HEMATOCRIT 23.1 % (42.0-52.0); HEMOGLOBIN 7.3 g/dl (13.5-18.0); MEAN CORPUSCULAR HEMOGLOBIN 32 pg (27-31)
[2022-07-02 18:46] LABS: BAND 10 % (0-10); LYMPHOCYTE 2 % (20.0-51.0); METAMYELOCYTE 1 % (0-0); NEUTROPHILS 85 % (42.0-75.2); NUCLEATED RED BLOOD CELL 1 (0-6); OVALOCYTES 1+
[2022-07-02 18:47] LABS: ANISOCYTOSIS 2+
[2022-07-02 18:48] LABS: PLATELET ESTIMATE NORMAL (NORMAL)
[2022-07-02 18:51] LABS: ALANINE AMINOTRANSFERASE 14 U/L (0-55); ALBUMIN 3.8 gm/dL (3.4-4.8); ALKALINE PHOSPHATASE 91 U/L (40-150); ANION GAP 10 mmol/L (7-16); AST,SGOT 14 U/L (5-34); BILIRUBIN,TOTAL 1.3 mg/dL (0.2-1.2); BLOOD UREA NITROGEN 26 mg/dL (8-26); C-REACTIVE PROTEIN 5.06 mg/dL (0.00-0.50); CALCIUM 8.5 mg/dL (8.4-10.2); CARBON DIOXIDE 21 mmol/L (23-31); CHLORIDE 104 mmol/L (98-107); CREATININE, serum 1.82 mg/dL (0.72-1.25); LIPASE 22 U/L (8-78); POTASSIUM 4.9 mmol/L (3.5-4.5); SODIUM 135 mmol/L (136-145); TOTAL PROTEIN 6.5 gm/dL (6.2-8.1)
[2022-07-02 18:58] LABS: ACETONE,SERUM NEGATIVE
[2022-07-02 18:59] LABS: GLUCOSE 485 mg/dL (70-99)
--- NOTE | 2022-07-02 20:45 | NUR ---
ADMITTED FROM ED PER CART. ABLE TO TRANSFER WITH SBA TO BED. PT IS ALERT AND ORIENTED X4. HAS LEFT PORTACATH ACCESSED WITH IVF INFUSING. HAS RT INT FLUSHES WELL AT THIS TIME. HAS UPPER BACK HEALING INCISION WITH SCABBING AND REDNESS NOTED. PT DENIES PAIN, VERBALIZES MILD NAUSEA.
[2022-07-02 20:50] VITALS: BP 135/60; PULSE 103; TEMP 98.1
[2022-07-02] MEDS ORDERED: JAKAFI10 MG PO (21:15)
[2022-07-02] MEDS ORDERED: LYRICA 100MG C100 M1 PO (21:19)
[2022-07-02] MEDS ORDERED: OZEMPIC0.25 MG/0. SQ (21:25)
--- NOTE | 2022-07-02 22:04 | NUR ---
HS MEDS GIVEN, TAKES WITHOUT EMESIS. BLOOD SUGAR 324=10 UNITS NOVOLOG AND LEVEMIR 30 UNITS.
--- NOTE | 2022-07-02 22:33 | NUR ---
Vancomycin Initial Dosing Pharmacy Note Ordering provider: Conner Frederick MD Indication/duration: Sepsis 2nd to cellulitis. Relevant comorbidities: DM, HTN, CKD, Hx MRSA LABS: WBC = 13.8, SCr = 1.82 Recommendation: Will draw troughs and follow levels. Loading dose: 1.5 grams Maintenance dose: 1.5 grams every 24 hours Trough goal: 10-15 ug/mL
[2022-07-03] VITALS (15 sets, daily range): BP systolic 108–144; BP diastolic 40–63; PULSE 58–108; TEMP 97.5–98.9
--- NOTE | 2022-07-03 05:00 | NUR ---
PT IN BED, NO N/V THIS SHIFT. IVF INFUSING WITHOUT PROBLEM. SCDS ON.
[2022-07-03 06:51] LABS: MEAN CELL VOLUME 99 fl (80.0-100.0); MEAN CORPUSCULAR HGB CONC 32 g/dl (33.0-37.0); MEAN PLATELET VOLUME 11.8 fl (7.4-10.4); PLATELET COUNT 361 K/mm3 (130-400); RED BLOOD COUNT 2.13 M/mm3 (4.20-5.60); REDCELL DISTRIBUTION WIDTH-CV 22.5 % (11.5-14.5)
[2022-07-03 07:00] LABS: HEMATOCRIT 21.1 % (42.0-52.0); HEMOGLOBIN 6.8 g/dl (13.5-18.0); MEAN CORPUSCULAR HEMOGLOBIN 32 pg (27-31)
--- NOTE | 2022-07-03 07:00 | NUR ---
Critical lab-hgb 6.8-called to Dr. Frederick at this time. Assessment complete. A&Ox3. Denies pain. States he is slightly nauseas and has no appetite. TELE reporting ST. Port to left chest flushes well with good blood return. NS@125ml/hr infusing without difficulty. Noted to have an approximate 10 inch long healing incision to back. Red in color. Plan of care discussed for this shift to include meds/nausea control/blood transfusion/calling for questions/concerns. Verbalizes understanding. call light in reach. Will monitor.
[2022-07-03 07:04] LABS: CALCIUM 8.5 mg/dL (8.4-10.2); CREATININE, serum 1.43 mg/dL (0.72-1.25); POTASSIUM 4.1 mmol/L (3.5-4.5)
[2022-07-03 07:55] LABS: BAND 20 % (0-10); HYPOCHROMIA 1+; LYMPHOCYTE 3 % (20.0-51.0); NEUTROPHILS 74 % (42.0-75.2)
[2022-07-03 07:56] LABS: ANISOCYTOSIS 2+; PLATELET ESTIMATE NORMAL (NORMAL)
[2022-07-03 07:57] LABS: POIKILOCYTOSIS 1+
--- NOTE | 2022-07-03 08:20 | NUR ---
Bedside glucose 162. Patient states he is not very hungry but will take a house tray and will try to eat some. Currently is suppose to receive 4 units short acting/30 units long acting insulin. Requesting to hold off on this until he sees if he can tolerate eating. Will reassess once tray arrives.
--- NOTE | 2022-07-03 09:53 | NUR ---
Patient states he is not going to eat breakfast and does not want to take his insulin.
--- NOTE | 2022-07-03 10:54 | NUR ---
Patient more awake now and eating breakfast. AM dose of insulin given with meal.
--- NOTE | 2022-07-03 11:00 | NUR ---
Dr park notified of new consult.
--- NOTE | 2022-07-03 11:05 | NUR ---
Spoke with lab on status of blood product. States should be here within the hour.
--- NOTE | 2022-07-03 14:34 | NUR ---
SW met with patient to complete intake. Patient states that he lives in [place], [place] with his Marlys Bueno who is appointed as DPOA/HC. Patient states that he utilizes a walker and a cane, is independent with ADL's, and does not utilize HH services at this time. Patient states that he goes to the [facility] where his PCP is located, and pharmacy is [facility]. Patient plans to return to his home upon DC. SW will continue to follow. DC plan: home
--- NOTE | 2022-07-03 14:45 | NUR ---
Blood transfusion initiated at this time.
--- NOTE | 2022-07-03 17:06 | NUR ---
Patient had an uneventful day. Slept most of the shift but did get a unit of PRBC. Denied pain/shortness of breath. Did have some mild nausea. VS remained stable. denies current needs. Call light in reach. Will monitor.
--- NOTE | 2022-07-03 17:33 | NUR ---
Blood transfusion complete. No reaction noted.
--- NOTE | 2022-07-03 19:30 | NUR ---
RECHECK HGB=7.6.
[2022-07-03 20:03] LABS: HEMATOCRIT 23.5 % (42.0-52.0); HEMOGLOBIN 7.6 g/dl (13.5-18.0)
--- NOTE | 2022-07-03 21:26 | NUR ---
PT IN BED. SLEEPY. ORIENTED X4. HAS IVF INFUSING TO LT PORT WITHOUT PROBLEM. DC'D INT FROM RAC, ANGIOCATH INTACT. HAS HAD NO STOOLS, IS AWARE OF NEED FOR STOOL SPECIMEN. REPORTS VOIDING WITHOUT PROBLEM. APPETITE IMPROVED. NO N/V. HS MEDS GIVEN INCLUDING NORCO FOR BACK PAIN. UPPER BACK INCISION WITH REDNESS, APPROXIMATED WELL AND DRY.
[2022-07-04] VITALS (9 sets, daily range): BP systolic 100–149; BP diastolic 40–66; PULSE 67–100; TEMP 97.6–99.4
--- NOTE | 2022-07-04 04:37 | NUR ---
IVF COMPLETE. PT TAKING PO WELL.
--- NOTE | 2022-07-04 08:30 | NUR ---
Assessment complete. A&Ox4. Denies nausea/shortness of breath. VS remain stable. Port to right chest flushes well with good blood return. Rating pain 6/10 to back-described as constant throbbing. Will give norco when able to have. Plan of care discussed for this shift to include meds/pain control/PT/calling for questions/concerns. Verbalizes understanding. Call light in reach. Will monitor.
[2022-07-04 10:16] LABS: HEMATOCRIT 23.3 % (42.0-52.0); HEMOGLOBIN 7.3 g/dl (13.5-18.0); MEAN CELL VOLUME 101 fl (80.0-100.0); MEAN CORPUSCULAR HEMOGLOBIN 32 pg (27-31); MEAN CORPUSCULAR HGB CONC 31 g/dl (33.0-37.0); MEAN PLATELET VOLUME 11.7 fl (7.4-10.4); PLATELET COUNT 361 K/mm3 (130-400); RED BLOOD COUNT 2.31 M/mm3 (4.20-5.60); REDCELL DISTRIBUTION WIDTH-CV 23.8 % (11.5-14.5)
[2022-07-04 10:27] LABS: CALCIUM 8.5 mg/dL (8.4-10.2); CREATININE, serum 1.55 mg/dL (0.72-1.25); POTASSIUM 4.5 mmol/L (3.5-4.5)
--- NOTE | 2022-07-04 16:50 | NUR ---
Patient had an uneventful day. Blood sugars in the 200s today. Tolerating PO. Portacath flushes well with good blood return. Hgb up to 7.3. Denies current needs. Call light in reach. Will monitor.
[2022-07-04 18:39] LABS: HEMATOCRIT 21.9 % (42.0-52.0); HEMOGLOBIN 6.8 g/dl (13.5-18.0)
--- NOTE | 2022-07-04 18:40 | NUR ---
PAULETTE Rojas notified of critical HGB 6.8. Reported off to DEBO Nino.
--- NOTE | 2022-07-04 20:00 | NUR ---
PT SITTING AT EDGE OF BED. IS ALERT AND ORIENTED X4. REVIEWED HGB RESULTS WITH PT. HAS LEFT PORT ACCESSED. UPPER BACK INCISION SCABBED AND DRY WITH MILD REDNESS. PT DENIES PAIN AT THIS TIME.
[2022-07-05 01:21] VITALS: BP 121/52; PULSE 96
--- NOTE | 2022-07-05 03:00 | NUR ---
LAB OBTAINED FROM [facility] FOR H&H. PT HAS NOT HAD A STOOL YET.
--- NOTE | 2022-07-05 03:06 | NUR ---
PT ASKS FOR BLOOD SUGAR CHECK, FELT LOW. DJ=106. SNACK PROVIDED.
[2022-07-05 03:28] LABS: HEMOGLOBIN 7.3 g/dl (13.5-18.0)
[2022-07-05 04:23] VITALS: BP 127/50; PULSE 85; TEMP 98.6
--- NOTE | 2022-07-05 04:37 | NUR ---
REPORTED HGB=7.3 TO JOSIE CALDWELL.
[2022-07-05 07:13] VITALS: BP 125/55; PULSE 80; TEMP 98.2
--- NOTE | 2022-07-05 08:00 | NUR ---
PATIENT ORIENTED BUT DROWSY THIS AM. VSS ON TELE. DENIES PAIN OR NAUSEA. IV ABX INFUSING VIA PUMP INTO LEFT CHEST PORT. PATIENT NORMALLY LIVES AT HOME WITH . EXTENSIVE HX INCLUDING CABG, DM, CKD, AMPUTATED TOES. AM BS WAS 139, INSULIN GIVE PER MAR. AM MEDS ALSO GIVEN. HEAD TO TOE ASSESSMENT COMPLETE. DNR STATUS. SCD'S TO BLE. NO OTHER NEEDS AT THIS TIME. CALL LIGHT IN REACH.
[2022-07-05 09:15] VITALS: BP 94/51; PULSE 84
[2022-07-05] MEDS ORDERED: DOXYCYCLINE 10100 MG PO (09:16)
[2022-07-05 11:33] VITALS: BP 125/79; PULSE 64; TEMP 98.3
--- NOTE | 2022-07-05 12:15 | NUR ---
PATIENT DISCHARGING HOME. GAVE DISCHARGE INSTRUCTIONS, E-SCRIPT SENT, DISCUSSED F/U APTS AND ANSWERED QUESTIONS/CONCERNS. DC-ACCESSED PORT PER PROTOCOL AND COVERED SITE WITH GAUZE & TEGADERM. TELE DC'D. PATIENT IS DRESSED, PACKED, AND ESCORTED OUT VIA WC TO PERSONAL VEHICLE WITH FAMILY.
--- NOTE | 2022-07-05 12:40 | NUR ---
[employer] spoke with Hospitalist who advised patient to discharge home today. SW met with patient to present and review IM form. Patient verbalized understanding and provided signature. SW placed form in chart and provided copy to patient. SW reviewed PT recommendation for Home Health, however patient stated he was just discharged from [facility] and did not feel services were needed at this time. Discharge Plan: Home
== END 2022-07-05 12:15 | disposition home or self-care (01) | DRG 872 ==
LOC: COL.ER 17:26 → SURG 19:36
PROVIDERS: Emergency Medicine; Student in an Organized Health Care Education/Training Program; ADMIT Internal Medicine
PROC: 30233N1 Transfusion of Nonautologous Red Blood Cells into Peripheral Vein, Percutaneous Approach (ICD-10-PCS; principal; 2022-07-02)
DX: A41.9 Sepsis, unspecified organism (principal); L03.312 Cellulitis of back [any part except buttock and flank]; N17.9 Acute kidney failure, unspecified; D75.81 Myelofibrosis; R65.10 Systemic inflammatory response syndrome (SIRS) of non-infectious origin without acute organ dysfunction; E11.40 Type 2 diabetes mellitus with diabetic neuropathy, unspecified; D75.839 Thrombocytosis, unspecified; Z66 Do not resuscitate; F32.A Depression, unspecified; G25.81 Restless legs syndrome; G47.00 Insomnia, unspecified; E78.5 Hyperlipidemia, unspecified; D51.9 Vitamin B12 deficiency anemia, unspecified; I25.10 Atherosclerotic heart disease of native coronary artery without angina pectoris; E66.9 Obesity, unspecified; I12.9 Hypertensive chronic kidney disease with stage 1 through stage 4 chronic kidney disease, or unspecified chronic kidney disease; E11.22 Type 2 diabetes mellitus with diabetic chronic kidney disease; N18.9 Chronic kidney disease, unspecified; N40.0 Benign prostatic hyperplasia without lower urinary tract symptoms; I44.0 Atrioventricular block, first degree; I44.7 Left bundle-branch block, unspecified; E11.65 Type 2 diabetes mellitus with hyperglycemia; I45.81 Long QT syndrome; T50.995A Adverse effect of other drugs, medicaments and biological substances, initial encounter; E86.1 Hypovolemia; D53.9 Nutritional anemia, unspecified; Z79.4 Long term (current) use of insulin; Z90.49 Acquired absence of other specified parts of digestive tract; Z95.1 Presence of aortocoronary bypass graft; Z85.820 Personal history of malignant melanoma of skin; Z89.422 Acquired absence of other left toe(s); Z89.411 Acquired absence of right great toe; Z79.82 Long term (current) use of aspirin; Z68.34 Body mass index [BMI] 34.0-34.9, adult; Z23 Encounter for immunization
CPT/HCPCS: J0696; J1815; J2405; J2550; J3370; J7030; J7050; P9040

== ENCOUNTER 2022-10-16 19:32 | Emergency (ER) | payer MEDICARE ==
[~2022-10-16] VITALS: Ht 185.4 cm; Wt 120.5 kg
[~2022-10-16 19:32] MED LIST changes: +JAKAFI10 MG PO; +OZEMPIC0.25 MG/0. SQ
[2022-10-16 20:38] LABS: MEAN CELL VOLUME 96 fl (80.0-100.0); MEAN CORPUSCULAR HGB CONC 33 g/dl (33.0-37.0); MEAN PLATELET VOLUME 11.7 fl (7.4-10.4); PLATELET COUNT 399 K/mm3 (130-400); RED BLOOD COUNT 2.71 M/mm3 (4.20-5.60); REDCELL DISTRIBUTION WIDTH-CV 19.2 % (11.5-14.5)
[2022-10-16 20:44] LABS: ALBUMIN 4.2 gm/dL (3.4-4.8); BILIRUBIN,TOTAL 0.8 mg/dL (0.2-1.2); CALCIUM 9.1 mg/dL (8.4-10.2); CREATININE, serum 1.62 mg/dL (0.72-1.25); POTASSIUM 4.9 mmol/L (3.5-4.5); TOTAL PROTEIN 6.6 gm/dL (6.2-8.1)
[2022-10-16 20:45] LABS: HEMATOCRIT 26.1 % (42.0-52.0); HEMOGLOBIN 8.7 g/dl (13.5-18.0); MEAN CORPUSCULAR HEMOGLOBIN 32 pg (27-31)
[2022-10-16 21:04] LABS: BAND 12 % (0-10); EOSINOPHIL 1 % (0-4); LYMPHOCYTE 3 % (20.0-51.0); METAMYELOCYTE 1 % (0-0); NEUTROPHILS 76 % (42.0-75.2)
[2022-10-16 21:06] LABS: PLATELET ESTIMATE NORMAL (NORMAL)
[2022-10-16 21:07] LABS: ANISOCYTOSIS 2+; OVALOCYTES 1+
[2022-10-16 21:43] LABS: COLLECTION METHOD CLEAN CATCH
[2022-10-16 21:47] LABS: SQUAMOUS EPITHELIAL 0-2 /hpf (0-10); URINE BACTERIA None Seen /hpf (NONE SEEN); URINE RBC 0-2 /hpf (0-2)
[2022-10-16 21:49] LABS: URINE APPEARANCE Clear (CLEAR/HAZY); URINE BLOOD Negative (NEGATIVE); URINE COLOR Yellow (YELLOW); URINE GLUCOSE 2+ (NEGATIVE); URINE KETONE Negative (NEGATIVE); URINE NITRATE Negative (NEGATIVE); URINE PROTEIN(semi-quant) Negative (NEGATIVE); URINE UROBILINOGEN 0.2 E.U/dL (0.2-1.0)
[2022-10-16] MEDS ORDERED: ZOFRAN ODT4 MG PO (21:56)
[2022-10-16 22:10] VITALS: PULSE 79; TEMP 98.7
[2022-10-16 22:30] VITALS: BP 157/74
[2022-10-18 08:28] LABS: PATHOLOGY DIFF REVIEW OK +
== END 2022-10-16 22:30 | disposition home or self-care (01) ==
LOC: COL.ER 19:32
PROVIDERS: Family Medicine
DX: R11.2 Nausea with vomiting, unspecified (principal); N50.89 Other specified disorders of the male genital organs; D75.81 Myelofibrosis; E66.9 Obesity, unspecified; Z68.35 Body mass index [BMI] 35.0-35.9, adult
CPT/HCPCS: J2550; J7030

== ENCOUNTER 2023-04-10 17:06 | Emergency (ER) | payer MEDICARE ==
[~2023-04-10] VITALS: Ht 185.4 cm; Wt 113.6 kg
[~2023-04-10 17:06] MED LIST changes: +ZOFRAN ODT4 MG PO
[2023-04-10 17:08] VITALS: TEMP 98.6
[2023-04-10 17:35] VITALS: BP 129/66; PULSE 81
== END 2023-04-10 17:43 | disposition home or self-care (01) ==
LOC: COL.ER 17:06
DX: L89.313 Pressure ulcer of right buttock, stage 3 (principal)

== ENCOUNTER 2023-08-24 07:47 | Outpatient (RCR) | payer MEDICARE ==
[2008-10-28 06:45] VITALS: BP 117/60
[~2023-08-24] VITALS: Ht 185.4 cm; Wt 100.0 kg
[2023-08-24] VITALS (10 sets, daily range): BP systolic 125–153; BP diastolic 54–83; PULSE 62–97; TEMP 98.4–99
[~2023-08-24 07:47] MED LIST changes: -ASPIRIN 32325 MG/TA1 PO; +GOOD NEIGH1200 MG/15 PO; +INSULIN AS100 UNIT/2 SQ; +LANTUS100 U/ML SQ; +MELATIN 3 MG-11 TAB PO; +MELATONIN3 M1; +MIRALAX PA17 GM/Dose PO; +NARCAN4 MG NS; -OZEMPIC0.25 MG/0. SQ; +OZEMPIC1 MG/0.71 SQ; +REQUIP 1MG T1 MG/TAB PO; +ROXICODONE 55 MG/TAB PO; +SENNA-LAX8.6 MG PO; +VISINE A.C. 0.015 ML OP
[2023-08-24] MEDS ORDERED: diphenhydrAMINE 25 MG CAP PO SCH (08:15)
[2023-08-24] MEDS ORDERED: Acetaminophen 325 MG TAB PO SCH (08:15)
[2023-08-24] MEDS ORDERED: NS 250 ML IV SCH (08:15)
--- NOTE | 2023-08-24 14:24 | NUR ---
PT SITS UP IN W/C WAITS FOR TRANSPORTATION, WRITTEN REPORT WITH PT ON UPDATE
== END 2023-08-25 12:03 | disposition home or self-care (01) ==
LOC: EUO 07:47
DX: D64.9 Anemia, unspecified (principal); D75.81 Myelofibrosis
CPT/HCPCS: J1644; J7050; P9016

== ENCOUNTER → 2024-02-21 | Outpatient (REF) | payer MEDICARE ==
[2024-02-21 14:05] LABS: MEAN CELL VOLUME 111 fl (80.0-100.0); MEAN CORPUSCULAR HGB CONC 32 g/dl (33.0-37.0); MEAN PLATELET VOLUME 11.5 fl (7.4-10.4); PLATELET COUNT 537 K/mm3 (130-400); RED BLOOD COUNT 2.46 M/mm3 (4.20-5.60); REDCELL DISTRIBUTION WIDTH-CV 19.9 % (11.5-14.5)
[2024-02-21 14:12] LABS: HEMATOCRIT 27.4 % (42.0-52.0); HEMOGLOBIN 8.8 g/dl (13.5-18.0); MEAN CORPUSCULAR HEMOGLOBIN 36 pg (27-31)
[2024-02-21 15:32] LABS: BAND 6 % (0-10); LYMPHOCYTE 11 % (20.0-51.0); NEUTROPHILS 74 % (42.0-75.2)
[2024-02-21 15:33] LABS: EOSINOPHIL 3 % (0-4); MYELOCYTE 1 % (0-0)
[2024-02-21 15:37] LABS: ANISOCYTOSIS 2+; HYPOCHROMIA 2+
[2024-02-21 15:38] LABS: OVALOCYTES 1+; STOMATOCYTE 1+; TEAR DROP CELLS 1+
== END ==
LOC: ZCOL.LAB 13:08
PROVIDERS: Internal Medicine
DX: D75.81 Myelofibrosis (principal)